=== PATIENT | female | born 1960 | race Caucasian/White ===

== ENCOUNTER → 2020-10-01 09:35 | Outpatient (CLI) | payer OTHER, SELFPAY ==
[2020-10-01 10:04] LABS: Absolute Neutrophil Count 5.6 X10^3/uL (2.0-7.7); Basophil# 0.04 X10^3/uL; Basophil% 0.6 % (0-1); Eosinophil# 0.09 X10^3/uL; Eosinophils% 1.3 % (0-5); Hematocrit 34.8 % (37-47); Hemoglobin 11.9 g/dL (12.0-15.0); Lymphocyte % 12.6 % (19-41); Mean Corp Hgb Conc 34.2 g/dL (32-36); Mean Corpuscular Hgb 35.4 pg (27.0-32.0); Mean Corpuscular Volume 103.6 fL (81-99); Monocyte# 0.46 X10^3/uL; Monocyte% 6.4 % (0-10); NRBC Flagged by Analyzer 0 % (0-5); Neutrophil # 5.61 X10^3/uL (2.7-7.7); Neutrophil % 78.5 % (47-70); Platelet Count 155 K/mm3 (150-450); RBC Distribution Width CV 12.6 % (11.6-14.6); RBC Distribution Width SD 47.5 fl (35.1-43.9); Red Blood Count 3.36 M/mm3 (4.2-5.4); White Blood Count 7.1 K/mm3 (4.4-11.0)
[2020-10-01 10:51] LABS: ALB/GLOB Ratio 0.9 RATIO (0.9-2.4); AST(SGOT) 83 U/L (15-37); Alanine Aminotransfer ALT/SGPT 63 U/L (13-56); Albumin, Serum 4.1 g/dL (3.2-5.0); Alkaline Phosphatase 81 U/L (45-117); Anion Gap 10 (5-15); BUN 7 mg/dL (7-18); BUN/Creat Ratio 7.5 RATIO (10-20); Calcium,Total 9.3 mg/dL (8.5-10.1); Chloride 95 mmol/L (98-107); Creatinine, Serum 0.93 mg/dL (0.55-1.02); EST Glomerular Filtration Rate 65 mL/min (>60); Est Glom Filt Rate - Afr Amer 79 mL/min (>60); Globulin 4.6 g/dL (2.2-4.2); Glucose 89 mg/dL (74-106); Potassium 3.4 mmol/L (3.5-5.1); Protein, Total 8.7 g/dL (6.4-8.2); Sodium Level 131 mmol/L (136-145); T4 Total, Thyroxin 8.1 ug/dL (4.8-13.9); Thyroid Stim Hormone (TSH) 4.86 uIU/mL (0.358-3.74)
== END ==
DX: R00.0 Tachycardia, unspecified (principal)
CPT/HCPCS: 36415; 80053; 84436; 84443; 85025

== ENCOUNTER → 2020-10-24 12:46 | Outpatient (CLI) | payer OTHER, SELFPAY ==
[2020-10-24 13:31] LABS: Vitamin B12 559 pg/mL (211-911)
[2020-10-24 14:06] LABS: Iron 217 ug/dL (50-170); Iron Binding Capacity,Total 280 ug/dL (250-450)
[2020-11-01 04:10] LABS: Vitamin B1, Thiamine 128.5 nmol/L (66.5-200.0)
[2020-11-01 12:28] LABS: Thyroid Peroxidase AB 22 IU/mL (0-34)
== END ==
DX: F32.89 Other specified depressive episodes (principal)
CPT/HCPCS: 36415; 82607; 82746; 83540; 83550; 84425; 86376

== ENCOUNTER → 2020-10-29 11:11 | Outpatient (CLI) | payer OTHER, SELFPAY ==
[2020-10-29 11:40] LABS: Absolute Lymphocyte Count 0.97 X10^3/uL (0.83-4.51); Absolute Neutrophil Count 7.2 X10^3/uL (2.0-7.7); Basophil# 0.03 X10^3/uL; Basophil% 0.3 % (0-1); Eosinophil# 0.02 X10^3/uL; Eosinophils% 0.2 % (0-5); Hematocrit 35.7 % (37-47); Hemoglobin 11.5 g/dL (12.0-15.0); Lymphocyte # 0.97 X10^3/ul (4.0); Lymphocyte % 10.8 % (19-41); Mean Corp Hgb Conc 32.2 g/dL (32-36); Mean Corpuscular Volume 105.6 fL (81-99); Mean Platelet Vol. 8.7 fl (6.2-12.0); Monocyte# 0.74 X10^3/uL; Monocyte% 8.2 % (0-10); NRBC Flagged by Analyzer 0 % (0-5); Neutrophil % 80.1 % (47-70); Platelet Count 148 K/mm3 (150-450); RBC Distribution Width CV 14.3 % (11.6-14.6); RBC Distribution Width SD 55.5 fl (35.1-43.9); Red Blood Count 3.38 M/mm3 (4.2-5.4)
[2020-10-29 12:15] LABS: ALB/GLOB Ratio 0.9 RATIO (0.9-2.4); AST(SGOT) 63 U/L (15-37); Alanine Aminotransfer ALT/SGPT 55 U/L (13-56); Albumin, Serum 4.1 g/dL (3.2-5.0); Alkaline Phosphatase 85 U/L (45-117); Anion Gap 11 (5-15); BUN 6 mg/dL (7-18); BUN/Creat Ratio 7.1 RATIO (10-20); Calcium,Total 9.8 mg/dL (8.5-10.1); Chloride 94 mmol/L (98-107); Creatinine, Serum 0.85 mg/dL (0.55-1.02); EST Glomerular Filtration Rate 73 mL/min (>60); Est Glom Filt Rate - Afr Amer 88 mL/min (>60); Globulin 4.6 g/dL (2.2-4.2); Glucose 122 mg/dL (74-106); Potassium 3.6 mmol/L (3.5-5.1); Protein, Total 8.7 g/dL (6.4-8.2); Sodium Level 133 mmol/L (136-145); Thyroid Stim Hormone (TSH) 8.91 uIU/mL (0.358-3.74)
[2020-10-30 11:23] LABS: H. Pylori Antibody (IgG) 0.45 (0.00-0.79)
== END ==
DX: R11.2 Nausea with vomiting, unspecified (principal)
CPT/HCPCS: 36415; 80053; 84443; 85025; 86677

== ENCOUNTER → 2020-11-22 13:44 | Outpatient (CLI) | payer OTHER, SELFPAY | PROVIDERS: Visit Provider Nurse Practitioner Adult Health | DX: K92.1 Melena (principal) | CPT/HCPCS: 82274 ==

== ENCOUNTER → 2020-11-28 10:02 | Outpatient (CLI) | payer OTHER, SELFPAY ==
[2020-11-28 10:24] LABS: Absolute Lymphocyte Count 2.28 X10^3/uL (0.83-4.51); Absolute Neutrophil Count 4.8 X10^3/uL (2.0-7.7); Basophil# 0.07 X10^3/uL; Basophil% 0.9 % (0-1); Eosinophil# 0.17 X10^3/uL; Eosinophils% 2.1 % (0-5); Hematocrit 35.9 % (37-47); Hemoglobin 11.9 g/dL (12.0-15.0); Lymphocyte # 2.28 X10^3/ul (0.83-4.51); Lymphocyte % 28.8 % (19-41); Mean Corp Hgb Conc 33.1 g/dL (32-36); Mean Corpuscular Hgb 35.6 pg (27.0-32.0); Mean Corpuscular Volume 107.5 fL (81-99); Mean Platelet Vol. 8.7 fl (6.2-12.0); Monocyte% 7.6 % (0-10); NRBC Flagged by Analyzer 0 % (0-5); Neutrophil # 4.76 X10^3/uL (2.7-7.7); Neutrophil % 60.2 % (47-70); Platelet Count 227 K/mm3 (150-450); RBC Distribution Width CV 13.2 % (11.6-14.6); Red Blood Count 3.34 M/mm3 (4.2-5.4); White Blood Count 7.9 K/mm3 (4.4-11.0)
--- NOTE | 2020-11-28 10:25 | RAD_ITS ---
STUDY: X-RAY - THORACIC SPINE REASON FOR EXAM: Female, 60 years old. PAIN IN THORACIC SPINE TECHNIQUE: 3 view(s) of the thoracic spine were obtained. COMPARISON: None. FINDINGS: Normal kyphosis of the thoracic spine. There is no substantial scoliosis. There is multilevel endplate spondylosis of the thoracic vertebrae. There is multilevel disc space narrowing of the thoracic spine. The soft tissue structures are unremarkable. RAD/Thoracic Spine 2 Views IMPRESSION: Degenerative changes without acute findings Electronically Signed: Zak Cortez DO at 23:26 EDT Tel , Service support ,
[2020-11-28 10:51] LABS: ALB/GLOB Ratio 0.9 RATIO (0.9-2.4); AST(SGOT) 66 U/L (15-37); Alanine Aminotransfer ALT/SGPT 69 U/L (13-56); Albumin, Serum 3.9 g/dL (3.2-5.0); Alkaline Phosphatase 74 U/L (45-117); Anion Gap 13 (5-15); BUN 5 mg/dL (7-18); BUN/Creat Ratio 6.7 RATIO (10-20); Calcium,Total 8.9 mg/dL (8.5-10.1); Chloride 102 mmol/L (98-107); Creatinine, Serum 0.74 mg/dL (0.55-1.02); EST Glomerular Filtration Rate 84 mL/min (>60); Est Glom Filt Rate - Afr Amer 102 mL/min (>60); Globulin 4.5 g/dL (2.2-4.2); Glucose 99 mg/dL (74-106); Potassium 4.2 mmol/L (3.5-5.1); Protein, Total 8.4 g/dL (6.4-8.2); Sodium Level 137 mmol/L (136-145); Thyroid Stim Hormone (TSH) 8.04 uIU/mL (0.358-3.74)
== END ==
PROVIDERS: PCP Nurse Practitioner Adult Health; Referring Provider Nurse Practitioner Adult Health; Visit Provider Nurse Practitioner Adult Health
DX: R11.2 Nausea with vomiting, unspecified (principal); M54.6 Pain in thoracic spine
CPT/HCPCS: 36415; 72070; 80053; 84443; 85025

== ENCOUNTER → 2020-12-04 08:51 | Outpatient (CLI) | payer OTHER, SELFPAY ==
--- NOTE | 2020-12-04 08:53 | US_ITS ---
STUDY: ABDOMINAL ULTRASOUND - RIGHT UPPER QUADRANT REASON FOR VISIT: Female, 60 years old nausea and vomiting TECHNIQUE: Ultrasound evaluation of the right upper quadrant was performed with real-time and static abernathy-scale imaging. TECHNICAL QUALITY: Adequate. COMPARISON: None. FINDINGS: Liver: The liver measures 14.6 cm. There is normal echogenicity of the liver. The bile ducts are within normal limits. There is hepatic color flow. The direction of portal flow is hepatopetal. There is no demonstrated mass lesion. Gallbladder: Normal distended gallbladder. The gallbladder wall measures 3 mm. There is a negative sonographic Gutierrez''s sign. There is no pericholecystic fluid. There are no gallstones. Common Bile Duct (C.B.D.): The common bile duct measures 5 mm. Pancreas: Normal size of the head, body and tail of the pancreas. There is normal echogenicity of the pancreas. There is no demonstrated pancreatic mass or cyst. Right Kidney: Normal size of the right kidney. The right kidney measures 9.5 x 5.1 x 4.0 cm. Normal renal cortex. The right cortex measures 1.3 cm. There is no demonstrated renal mass or cyst. There is no right hydronephrosis. US/Abdomen Limited IMPRESSION: Normal right upper quadrant ultrasound examination. Electronically Signed: Rowdy Romo MD at 10:15 EDT , Service support ,
== END ==
PROVIDERS: PCP Nurse Practitioner Adult Health; Referring Provider Nurse Practitioner Adult Health; Visit Provider Nurse Practitioner Adult Health
DX: R10.811 Right upper quadrant abdominal tenderness (principal); R11.2 Nausea with vomiting, unspecified
CPT/HCPCS: 76705

== ENCOUNTER → 2021-04-15 14:02 | Outpatient (CLI) | payer OTHER, SELFPAY ==
[2021-04-15 14:56] LABS: Hematocrit 26.5 % (37-47); Hemoglobin 8.4 g/dL (12.0-15.0); Mean Corp Hgb Conc 31.7 g/dL (32-36); Mean Corpuscular Hgb 34.9 pg (27.0-32.0); Mean Platelet Vol. 9.1 fl (6.2-12.0); Platelet Count 488 K/mm3 (150-450); RBC Distribution Width SD 56.8 fl (35.1-43.9); Red Blood Count 2.41 M/mm3 (4.2-5.4); White Blood Count 9.2 K/mm3 (4.4-11.0)
[2021-04-15 15:26] LABS: AST(SGOT) 12 U/L (15-37); Alanine Aminotransfer ALT/SGPT 14 U/L (13-56); Albumin, Serum 2.9 g/dL (3.2-5.0); Alkaline Phosphatase 66 U/L (45-117); Bilirubin, Direct 0.06 mg/dL (0.00-0.30); Globulin 5.4 g/dL (2.2-4.2); Protein, Total 8.3 g/dL (6.4-8.2); Thyroid Stim Hormone (TSH) 2.63 uIU/mL (0.358-3.74)
== END ==
PROVIDERS: Referring Provider Family Medicine; Visit Provider Family Medicine
DX: R94.5 Abnormal results of liver function studies (principal); E03.9 Hypothyroidism, unspecified; D75.89 Other specified diseases of blood and blood-forming organs
CPT/HCPCS: 36415; 80076; 82746; 84443; 85027

== ENCOUNTER → 2021-04-21 10:36 | Outpatient (CLI) | payer OTHER, SELFPAY ==
[2021-04-21 11:38] LABS: Absolute Lymphocyte Count 1.84 X10^3/uL (0.83-4.51); Absolute Neutrophil Count 8.6 X10^3/uL (2.0-7.7); Basophil# 0.07 X10^3/uL; Basophil% 0.6 % (0-1); Eosinophil# 0.41 X10^3/uL; Eosinophils% 3.5 % (0-5); Hematocrit 28.6 % (37-47); Hemoglobin 8.9 g/dL (12.0-15.0); Lymphocyte # 1.84 X10^3/ul (0.83-4.51); Lymphocyte % 15.7 % (19-41); Mean Corp Hgb Conc 31.1 g/dL (32-36); Mean Corpuscular Hgb 34.4 pg (27.0-32.0); Mean Corpuscular Volume 110.4 fL (81-99); Mean Platelet Vol. 9.4 fl (6.2-12.0); Monocyte# 0.76 X10^3/uL; Monocyte% 6.5 % (0-10); NRBC Flagged by Analyzer 0 % (0-5); Neutrophil # 8.57 X10^3/uL (2.7-7.7); Platelet Count 599 K/mm3 (150-450); RBC Distribution Width CV 13.4 % (11.6-14.6); RBC Distribution Width SD 54.4 fl (35.1-43.9); Red Blood Count 2.59 M/mm3 (4.2-5.4); White Blood Count 11.7 K/mm3 (4.4-11.0)
[2021-04-23 19:07] LABS: HCV Quant. RNA PCR HCV Not Detected IU/mL (.)
[2021-04-23 21:25] LABS: Hepatitis B Core Ab Total Negative (Negative)
== END ==
PROVIDERS: Referring Provider Nurse Practitioner Adult Health; Visit Provider Nurse Practitioner Adult Health
DX: D64.9 Anemia, unspecified (principal); R94.5 Abnormal results of liver function studies
CPT/HCPCS: 36415; 85025; 86704; 87522

== ENCOUNTER → 2021-05-09 11:18 | Outpatient (CLI) | payer OTHER, SELFPAY ==
[2021-05-09 12:19] LABS: Absolute Lymphocyte Count 1.72 X10^3/uL (0.83-4.51); Absolute Neutrophil Count 6.8 X10^3/uL (2.0-7.7); Basophil# 0.05 X10^3/uL; Basophil% 0.5 % (0-1); Eosinophil# 0.26 X10^3/uL; Eosinophils% 2.7 % (0-5); Hematocrit 27.9 % (37-47); Hemoglobin 9.1 g/dL (12.0-15.0); Lymphocyte # 1.72 X10^3/ul (0.83-4.51); Lymphocyte % 17.8 % (19-41); Mean Corp Hgb Conc 32.6 g/dL (32-36); Mean Corpuscular Hgb 34.2 pg (27.0-32.0); Mean Corpuscular Volume 104.9 fL (81-99); Mean Platelet Vol. 9.4 fl (6.2-12.0); Monocyte# 0.78 X10^3/uL; NRBC Flagged by Analyzer 0 % (0-5); Neutrophil # 6.79 X10^3/uL (2.7-7.7); Neutrophil % 70.1 % (47-70); Platelet Count 352 K/mm3 (150-450); RBC Distribution Width CV 12.4 % (11.6-14.6); Red Blood Count 2.66 M/mm3 (4.2-5.4); White Blood Count 9.7 K/mm3 (4.4-11.0)
[2021-05-09 12:53] LABS: ALB/GLOB Ratio 0.6 RATIO (0.9-2.4); AST(SGOT) 17 U/L (15-37); Alanine Aminotransfer ALT/SGPT 18 U/L (13-56); Albumin, Serum 3.3 g/dL (3.2-5.0); Alkaline Phosphatase 71 U/L (45-117); Anion Gap 11 (5-15); BUN 16 mg/dL (7-18); BUN/Creat Ratio 11.1 RATIO (10-20); Calcium,Total 9.5 mg/dL (8.5-10.1); Chloride 101 mmol/L (98-107); Creatinine, Serum 1.44 mg/dL (0.55-1.02); EST Glomerular Filtration Rate 39 mL/min (>60); Est Glom Filt Rate - Afr Amer 48 mL/min (>60); Globulin 5.6 g/dL (2.2-4.2); Glucose 106 mg/dL (74-106); Lipase 685 U/L (73-393); Potassium 3.7 mmol/L (3.5-5.1); Protein, Total 8.9 g/dL (6.4-8.2); Sodium Level 131 mmol/L (136-145)
== END ==
PROVIDERS: Referring Provider Surgery; Visit Provider Surgery
DX: D64.9 Anemia, unspecified (principal); R10.9 Unspecified abdominal pain; R11.10 Vomiting, unspecified; R63.4 Abnormal weight loss
CPT/HCPCS: 36415; 80053; 83690; 85025

== ENCOUNTER → 2021-05-20 09:32 | Outpatient (CLI) | payer OTHER, SELFPAY ==
[2021-05-20 09:59] LABS: ALB/GLOB Ratio 0.6 RATIO (0.9-2.4); AST(SGOT) 18 U/L (15-37); Alanine Aminotransfer ALT/SGPT 19 U/L (13-56); Albumin, Serum 3.5 g/dL (3.2-5.0); Alkaline Phosphatase 75 U/L (45-117); Anion Gap 14 (5-15); BUN 7 mg/dL (7-18); Calcium,Total 10.2 mg/dL (8.5-10.1); Chloride 100 mmol/L (98-107); Creatinine, Serum 1.73 mg/dL (0.55-1.02); EST Glomerular Filtration Rate 32 mL/min (>60); Est Glom Filt Rate - Afr Amer 39 mL/min (>60); Globulin 5.7 g/dL (2.2-4.2); Glucose 133 mg/dL (74-106); Lipase 572 U/L (73-393); Potassium 2.8 mmol/L (3.5-5.1); Protein, Total 9.2 g/dL (6.4-8.2); Sodium Level 129 mmol/L (136-145)
== END ==
PROVIDERS: Referring Provider Surgery; Visit Provider Surgery
DX: R10.9 Unspecified abdominal pain (principal); R11.10 Vomiting, unspecified; R63.4 Abnormal weight loss; D64.9 Anemia, unspecified
CPT/HCPCS: 36415; 80053; 83690

== ENCOUNTER 2021-05-20 10:27 | Inpatient (IN) | payer OTHER, SELFPAY ==
[2021-05-20 10:28] VITALS: BP 105/69; PULSE 92; RESP 16; TEMP 36.4; O2SAT 100
--- NOTE | 2021-05-20 10:47 | EDS_ITS ---
HPI HPI - GI History of Present Illness Chief Complaint: Abd Pain Informant: patient Abdominal Pain/Flank Pain Onset: Month(s) Context: Gradual Onset Timing: Intermittent Quality: Aching Location: RUQ Current Severity: Gone Maximum Severity: Mild Worsened by: Nothing Relieved by: Nothing Nausea/Vomiting/Emesis GI Symptom: Negative for Nausea and Vomiting Diarrhea/Melena/Hematochezia GI Symptom: Positive for Diarrhea Onset: Weeks Stool Quality: Positive for Loose Severity: Mild Associated Symptoms Associated Symptoms: Negative for Dysuria, Frequency, Hematuria and Urgency Narrative Narrative: 60-year-old female past medical history of hypertension and hypothyroidism. Denies any prior abdominal surgeries. Recently stopped drinking a week ago but before that drinks several beers a day. States that she just feels weak all over. They have been working up for months for right upper quadrant abdominal pain she had a negative ultrasound. Today she was in Dr. Marin's office. They sent her in the emergency department for further evaluation. She felt weak and like she might pass out there. She denies any melena or hematemesis. No fever. She has had a 10 pound weight loss over the last several months. Prior similar symptoms: Yes Recent Illness/Hospitalization: No PFSH PFSH Medical History Alcohol use Anemia Anxiety and depression Back pain Former smoker Gastric reflux History of TMJ disorder Hypertension Hypothyroidism Osteoarthritis Restless legs Shortness of breath on exertion Walker as ambulation aid Home Medications levothyroxine 50 mcg tablet 50 mcg PO DAILY tab 05/09/21 [History Last Taken 05/19/21] lisinopril 10 mg tablet 10 mg PO DAILY tab 05/09/21 [History Last Taken 05/19/21] omeprazole 20 mg capsule,delayed release 20 mg PO DAILY cap 05/09/21 [History Last Taken 05/19/21] sertraline 25 mg tablet 25 mg PO DAILY tab 05/09/21 [History Last Taken 05/19/21] Allergy/AdvReac Type Severity Reaction Status Date / Time Penicillins Allergy Mild Rash Verified 05/20/21 10:40 Family History Father Cancer Mother Cancer Surgical History History of mandibular surgery Social History Smoking Status: Former smoker ROS ROS ED ROS Narrative Abdominal pain. Diarrhea. Review of Systems ROS Unobtainable: Denies due to encephalopathy Constitutional Constitutional ED: Denies fever(s) ENT ENT ED: Denies ear pain Cardiovascular Cardiovascular: Denies chest pain Respiratory/Chest Respiratory/Chest: Denies cough or dyspnea Gastrointestinal Gastrointestinal: Reports abdominal pain and diarrhea; Denies nausea or vomiting Genitourinary Genitourinary ED: Denies dysuria Musculoskeletal Musculoskeletal: Denies myalgias Integumentary Denies rash Neurologic Neurologic: Denies headache(s) Psychiatric Psychiatric: Denies depression Endocrine Endocrinology: Denies polyuria Hematologic/Lymphatic Hematologic/Lymphatic: Denies easy bruising Allergic/Immunologic Allergic/Immunologic ED: Denies urticaria EXAM Physical Exam Narrative Exam Narrative: 60-year-old female no acute distress. Currently pain-free. HEENT exam unremarkable. Neck nontender. Lungs clear to auscultation. Heart regular rhythm no murmur. Abdomen soft. Nondistended normal bowel sounds no peritoneal signs. Right upper quadrant currently is nontender. She is moving all 4 extremities. Calves are nontender without edema. Back nontender. Neurologically she is awake and alert. Very benign exam. Const Vital Signs: 05/20/21 10:28 05/20/21 14:18 Temperature 97.6 F L Temperature Source Temporal Pulse Rate 92 78 Respiratory Rate 16 14 Blood Pressure 105/69 107/89 H Blood Pressure Mean 81 95 Pulse Ox 100 99 Oxygen Delivery Method Room Air Room Air Positive well nourished and well developed; Negative for obese, cachectic, contractures or unkempt General Appearance ED: well developed and NAD; Negative for unkempt, cachectic, contractures or pallor Nutritional Appearance: Negative for cachectic or obese HEENT Reports moist mucous membranes normocephalic and atraumatic Eyes PERRL and EOMs intact bilaterally Neck no lymphadenopathy, supple and no JVD General: Negative for tenderness Resp normal respiratory effort and clear to auscultation bilaterally Auscultation: Negative for rales, rhonchi, wheezes or diminished lung sounds Cardio regular rate, regular rhythm, S1 normal heart sound, S2 normal heart sound and no murmurs GI non-tender, non-distended and no masses Auscultation: normoactive bowel sounds Palpation: soft; Negative for tender, guarding or rigid Back/Spine no CVA tenderness General Back: Negative for CVA tenderness Extremity full ROM General Extremety ED: Negative for edema or tenderness General Extremity: Negative for edema Neuro CN's II-XII intact bilaterally and moves all extremities Sensorium / Orientation: alert, oriented to person, oriented to place, oriented to time and orientation impaired; Negative for confused, lethargic or stuporous Motor Exam: strength 5/5 throughout Psych mental status grossly normal and thought process normal Appearance: Negative for unkempt Skin no wounds General Skin Exam: Negative for jaundice or pallor Lesions: no lesions Rashes: no rashes MDM MDM MDM Narrative Medical decision making narrative: 60-year-old with chronic abdominal pain he been working up for months. Was sent from the surgeon's office today. She will the CAT scan labs. Repeat exam patient is doing well. Her abdomen is nontender at this time. I spoke to her surgeon and I will have the hospitalist admit her for IV hydration and reevaluation of her kidney function and then they can go from there. Lab Data Attestation: I reviewed the patient's lab results. Lab results narrative: CBC shows a white count 8.5. Hemoglobin 9.5 with an elevated MCV. Platelet count unremarkable. Lipase elevated at 548 but coming down. CAT scan was positive for multiple gallstones and a possible right hemicolon colitis. Electrolytes were done earlier today show hyponatremia and hypokalemia probably associated with her history of alcohol use. Her lipase is actually significantly improved from what was it was 2300 several days ago. This I suspect is resolving pancreatitis either from her alcohol use or her gallstones. She does have slightly worsening kidney function with a creatinine of 1.73. Labs: Laboratory Results - last 24 hr 05/20/21 05/20/21 11:17 11:17 WBC 8.5 RBC 2.78 L Hgb 9.5 L Hct 27.8 L MCV 100.0 H MCH 34.2 H MCHC 34.2 RDW Std Deviation 43.7 RDW Coeff of Dannie 11.9 Plt Count 298 MPV 9.5 Immature Gran % (Auto) 0.900 Neut % (Auto) 80.0 H Lymph % (Auto) 9.2 L [place] % (Auto) 8.0 Eos % (Auto) 1.5 Baso % (Auto) 0.4 Absolute Neuts (auto) 6.8 Absolute Lymphs (auto) 0.78 L Nucleated RBC % 0 Lipase 548 H Radiography Diagnostic Testing: Clinical Impression(s) from Imaging Studies Abdomen/Pelvis CT 05/20/21 11:42 IMPRESSION: Multiple small gallstones. Findings suggestive of colitis involving the right hemicolon. Free fluid in the pelvis. Follicles are seen in both ovaries. Electronically Signed: Onofre Glover MD at 12:29 EDT , Service support , Rhythm Strip Rhythm Strip: Sinus Rhythm Rate: 80 Ectopy: None EKG Initial EKG: Attestation: I personally reviewed and interpreted this EKG as follows: Interpretation: Sinus Rhythm and No Acute Injury Pattern Comments: Normal sinus rhythm rate of 80 no acute signs of CA or ischemia. Discharge Plan Dx/Rx/DC Orders Clinical Impression: Abdominal pain, Pre-syncope, Gallstones, Acute hyponatremia, Acute hypokalemia, History of alcohol abuse, Acute dehydration, Acute kidney injury Disposition Disposition: Acute Care Hospital [facility]
--- NOTE | 2021-05-20 11:15 | CM.ED ---
SW Note Referral Source: Case Find Referral Reason: No Primary Care Physician (PCP) SW reviewed chart and noted that patient has no PCP. SW provided patient with list of [facility] and [facility] Physician List for reference. SW also provided patient with handout ?Where to go When?. No other issues or concerns voiced at this time. SW remains available for any additional needs. Plan: Provided patient with PCP information Valentina WARE
[2021-05-20] MEDS: 0.9% Normal Saline 1,000 ML 1000 ML IV (11:26)
[2021-05-20 11:34] LABS: Absolute Lymphocyte Count 0.78 X10^3/uL (0.83-4.51); Absolute Neutrophil Count 6.8 X10^3/uL (2.0-7.7); Basophil# 0.03 X10^3/uL; Basophil% 0.4 % (0-1); Eosinophil# 0.13 X10^3/uL; Eosinophils% 1.5 % (0-5); Hematocrit 27.8 % (37-47); Hemoglobin 9.5 g/dL (12.0-15.0); Lymphocyte # 0.78 X10^3/ul (0.83-4.51); Lymphocyte % 9.2 % (19-41); Mean Corp Hgb Conc 34.2 g/dL (32-36); Mean Corpuscular Hgb 34.2 pg (27.0-32.0); Mean Platelet Vol. 9.5 fl (6.2-12.0); Monocyte# 0.68 X10^3/uL; NRBC Flagged by Analyzer 0 % (0-5); Platelet Count 298 K/mm3 (150-450); RBC Distribution Width CV 11.9 % (11.6-14.6); RBC Distribution Width SD 43.7 fl (35.1-43.9); Red Blood Count 2.78 M/mm3 (4.2-5.4); White Blood Count 8.5 K/mm3 (4.4-11.0)
--- NOTE | 2021-05-20 11:42 | CT_ITS ---
STUDY: CT ABDOMEN AND PELVIS WITH CONTRAST REASON FOR EXAM: Female, 60 years old. Abd pain. RUQ and weight loss RADIATION DOSAGE (If Supplied By Facility): CTDIvol = ( 14.43 ) mGy, DLP = ( 268.55 ) mGycm TECHNIQUE: Transaxial images were obtained from the dome of the diaphragm to the symphysis pubis without oral contrast. IV 100mL Isovue-300 was administered. Sagittal and coronal images were reconstructed. Individualized dose optimization techniques were used for this CT. COMPARISON: None. FINDINGS: The visualized lung bases are unremarkable. The visualized portions of the heart are within normal limits. Normal liver. There are multiple small gallstones. Normal spleen. Normal pancreas. Normal bilateral adrenal glands. Normal right kidney. Normal left kidney. Normal visualized stomach. Normal small intestine. Mucosal thickening of the right hemicolon suggestive of colitis. The appendix is visualized and appears normal. There is scattered atherosclerotic calcification of the abdominal aorta, without a demonstrated aneurysm. Normal inferior vena cava. Normal retroperitoneum. Normal urinary bladder. Follicles are seen in both ovaries. Small amount of free fluid in the pelvis. Normal abdominal wall. There are diffuse degenerative changes of the visualized lumbar spine. Loss of height of the superior endplate of the L4 vertebrae. CT/Abdomen/Pelvis W IV Cont ONLY IMPRESSION: Multiple small gallstones. Findings suggestive of colitis involving the right hemicolon. Free fluid in the pelvis. Follicles are seen in both ovaries. Electronically Signed: Onofre Glover MD at 12:29 EDT , Service support ,
[2021-05-20 11:43] LABS: Lipase 548 U/L (73-393)
[2021-05-20 14:18] VITALS: BP 107/89; PULSE 78; RESP 14; O2SAT 99
--- NOTE | 2021-05-20 15:20 | EKG12_ITS ---
Test Reason : LOW POTASSIUM Blood Pressure : / mmHG Vent. Rate : 080 BPM Atrial Rate : 080 BPM P-R Int : 150 ms QRS Dur : 080 ms QT Int : 366 ms P-R-T Axes : 044 001 044 degrees QTc Int : 422 ms Normal sinus rhythm Low voltage QRS (Limb Leads) Confirmed by VELASQUEZ HURLEY, DINORA ([id number]), assistant film editor VANDANA ROMERO ([id number]) on 05/22/2021 8:48:47 AM Referred By: CK Confirmed By:DINORA ENG MD
[2021-05-20] MEDS: Potassium Chloride 10mEq/100mL 10 MEQ/100 ML IV.SOLN. 100 MEQ IV BOLUS ×5 (16:07→22:29)
[2021-05-20] MEDS: Potassium Chloride Oral Tablet 20 MEQ 40 MEQ PO (16:07)
[2021-05-20 16:17] VITALS: BP 101/85; PULSE 79; RESP 14; TEMP 36.1; O2SAT 99
--- NOTE | 2021-05-20 16:18 | PCM.HP.STD ---
HPI - General General Date of Admission: 05/20/21 Date of Service: 05/20/21 Chief Complaint: Dizziness, near syncopal sensation, lightheaded, abdominal pain, diarrhea. HPI Narrative The patient is a 60 y/o F w/ PMHx: Chronic anemia, OA, HTN, HLD, Hypothyroidism, RLS, Former tobacco use, Anxiety and Depression, EtOH abuse noting she stopped drinking ~ 1.5 week prior to current presentation who presents to the [facility] ED on 05/20/21 with pain at her general surgeon office, Dr. Hendrix with reported near syncopal event with fatigue, malaise and ongoing abdominal discomfort specifically at the office secondary to ongoing right upper quadrant pain with history of cholelithiasis and prior history of pancreatitis prompting referral to the ED for evaluation. Patient reports she was recently attempting to have endoscopies and was undergoing a bowel prep with loose stools but this was recently stopped secondary to her worsening symptoms. She notes the discomfort is primarily in the right upper quadrant, rated 6 out of 10 currently upon evaluation but sometimes it is worse with 10 out of 10, sharp. She reports approximately a 10 to 15 pound weight last over the last several 3 to 6 months but is not the best historian. She states that she quit drinking alcohol approximately 1.5 weeks prior to current presentation and notes that before that she was only drinking 1-2 beers, occasionally tall boys but from records this was much heavier previously. Work-up in the ED included T 97, heart rate 127 initially with repeat 79, BP 115/80, respiratory rate 20, 100% on room air, CBC with WBC 8.5, hemoglobin 9.5, platelet 298 with lymphopenia, lipase 548, CMP with sodium 129, potassium 2.8, BUN/creatinine 7/1.73, glucose 133, CT abdomen and pelvis with multiple small gallstones, findings suggestive of colitis involving the right hemicolon with mild free fluid in the pelvis with follicles seen in both ovaries. [facility] Medical History (Updated 05/20/21 @ 21:[address] Marnie Gorman MD) Alcohol use Anemia Anxiety and depression Back pain Former smoker Gastric reflux History of TMJ disorder Hypertension Hypothyroidism Osteoarthritis Restless legs Shortness of breath on exertion Walker as ambulation aid Home Medications levothyroxine 50 mcg tablet 50 mcg PO DAILY tab 05/09/21 [History Last Taken 05/19/21] lisinopril 10 mg tablet 10 mg PO DAILY tab 05/09/21 [History Last Taken 05/19/21] omeprazole 20 mg capsule,delayed release 20 mg PO DAILY cap 05/09/21 [History Last Taken 05/19/21] sertraline 25 mg tablet 25 mg PO DAILY tab 05/09/21 [History Last Taken 05/19/21] Allergy/AdvReac Type Severity Reaction Status Date / Time Penicillins Allergy Mild Rash Verified 05/20/21 10:40 Family History Father Cancer Mother Cancer Surgical History (Updated 05/20/21 @ 21:[address] Marnie Gorman MD) History of mandibular surgery Social History (Updated 05/20/21 @ 21:[address] Marnie Gorman MD) household members: none Smoking Status: Former smoker how long ago did patient quit smoking: Quit 30 years prior, 1 ppd since teenager until quitting. alcohol intake: former details: Quit 1 week prior to current admission 05/20/21, notes 1-2 tall boys daily. substance use type: does not use ROS ROS Narrative Admission Review of Systems: CONSTITUTIONAL: No weight loss, fever, chills, + weakness or fatigue. HEENT: Eyes: No visual loss, blurred vision, double vision or yellow sclerae. Ears, Nose, Throat: No hearing loss, sneezing, congestion, runny nose or sore throat. SKIN: No rash or itching, lesions, wounds. CARDIOVASCULAR: + Near syncopal sensation/LH/Dizziness. No chest pain, chest pressure or chest discomfort, palpitations, edema, orthopnea. RESPIRATORY: No shortness of breath, cough or sputum, wheezing, hemoptysis. GASTROINTESTINAL:+ anorexia, nausea, vomiting, diarrhea, abdominal pain, No melena, BRBPR. GENITOURINARY: No dysuria, frequency, urgency or retention. NEUROLOGICAL: + LH/Dizziness/near syncopal sensatoin. No headache, paralysis, ataxia, numbness or tingling in the extremities, focal weakness, change in bowel or bladder control, seizure. MUSCULOSKELETAL: + muscle, back pain, joint pain or stiffness. HEMATOLOGIC: + anemia, bleeding or bruising. LYMPHATICS: No enlarged nodes. No history of splenectomy. PSYCHIATRIC: + history of depression or anxiety. ENDOCRINOLOGIC: No reports of sweating, cold or heat intolerance. No polyuria or polydipsia. ALLERGIES: No history of asthma, hives, eczema or rhinitis. Vital Signs Vital Signs Vital Signs: 05/20/21 10:28 05/20/21 14:18 Temperature 97.6 F L Temperature Source Temporal Pulse Rate 92 78 Respiratory Rate 16 14 Blood Pressure 105/69 107/89 H Blood Pressure Mean 81 95 Pulse Ox 100 99 Oxygen Delivery Method Room Air Room Air Weight Weight: 120 lb Body Mass Index (BMI) 20.0 Physical Exam Narrative Physical Examination: General: Awake, alert, oriented x 3 and cooperative, seated upright in the ED bed, fatigued, flat affect. Skin: Normal color, normal turgor, no icterus, no cyanosis. HEENT: AT/NC, EOMI, PERRLA, dry MM, no carotid bruits or JVD noted. Lungs: Diminished, greater bases, moderate effort, no rales, ronchi or wheezing. Heart: Tachycardic with regular rhythm; no gallop, rub audible. Abdomen: Soft, generalized discomfort with palpation, worse right upper quadrant, with distraction seem to improve, some guarding but no rebound when distracted, mildly distended, mildly hyperactive bowel sounds, difficult discern HSM secondary to discomfort. Extremities: No cyanosis, clubbing, or edema. Neurological: Patient awake, alert, oriented as noted, cognitive function intact; pupils equally reactive to light and accommodation, cranial nerves II-XII grossly normal, moving all 4 extremities, no focal deficits, strength moderately global decreased. Psychiatric: Affect appears fatigued, flat, no acute evidence of depressive or anxiety feelings. Results Lab / Micro Data Result Diagrams: 05/20/21 11:17 Labs: Laboratory Results - last 24 hr 05/20/21 11:17: WBC 8.5, RBC 2.78 L, Hgb 9.5 L, Hct 27.8 L, MCV 100.0 H, MCH 34.2 H, MCHC 34.2, RDW Std Deviation 43.7, RDW Coeff of Dannie 11.9, Plt Count 298, MPV 9.5, Immature Gran % (Auto) 0.900, Neut % (Auto) 80.0 H, Lymph % (Auto) 9.2 L, [place] % (Auto) 8.0, Eos % (Auto) 1.5, Baso % (Auto) 0.4, Absolute Neuts (auto) 6.8, Absolute Lymphs (auto) 0.78 L, Nucleated RBC % 0 05/20/21 11:17: Lipase 548 H Rhythm Strip Rhythm Strip: Sinus Rhythm Rate: 80 Ectopy: None Radiology Impression Abdomen/Pelvis CT 05/20/21 11:42 IMPRESSION: Multiple small gallstones. Findings suggestive of colitis involving the right hemicolon. Free fluid in the pelvis. Follicles are seen in both ovaries. Electronically Signed: Onofre Glover MD at 12:29 EDT , Service support , Assessment & Plan Assessment/Plan (1) Acute kidney injury: (2) Acute colitis: PLAN: The patient is a 60 y/o F w/ PMHx: Chronic anemia, OA, HTN, HLD, Hypothyroidism, RLS, Former tobacco use, Anxiety and Depression, EtOH abuse noting she stopped drinking ~ 1.5 week prior to current presentation who presents to the [facility] ED on 05/20/21 with pain at her general surgeon office, Dr. Hendrix with reported near syncopal event with fatigue, malaise and ongoing abdominal discomfort specifically at the office secondary to ongoing right upper quadrant pain with history of cholelithiasis and prior history of pancreatitis prompting referral to the ED for evaluation. 1. Acute colitis, low suspicion for infectious etiology with associated BOLA, GI losses with Near Syncopal sensation: We will admit to medical surgical floor given electrolyte disturbances and acute kidney injury, will continue aggressive hydration, will obtain c diff, stool cx if recurrent loose stools, will allow clears only and will advance diet as tolerated once pain improving, will not start antibiotics at this time given unclear source pending stool studies as may be viral gastroenteritis. Procalcitonin requested. Anti-emetics, pain regimen PRN. 2. Recent Acute pancreatitis, resolving: Recent evaluation with 05/16/21 lipase 2316 with hydration and treatment outpatient with repeat now 548, will maintain on IVFs, currently allowing clears only given ongoing symptoms as noted, maintain on PPI, IV/po pain control, trend lipase, CMP. Given history and evidence of cholelithiasis from discussion with patient future plan likely cholecystectomy once current acute presentation resolves. 3. Acute kidney injury: Secondary to poor oral intake, GI losses as noted. Admission BUN/Cr 7/1.73, prior baseline creatinine noted to be 0.7 and 0.9. Will hydrate, hold nephrotoxic medications and repeat chemistry in AM. If no improvement would plan FeNa and renal ultrasound assessment. 4. Hypokalemia: Admission K+ 2.8, magnesium level requested, supplementation given per ED physician and will give additional, repeat level in AM. 5. EtOH Abuse: Patient notes routine consumption of currently only 1-2 potentially tall boys daily, quitting 1 week prior however patient is not the best story and there to be cautious, will maintain on CIWA protocol, MVI, thiamine and folic acid. Magnesium and phosphorus levels requested. Case management consulted. 6. Chronic anemia: Admission hemoglobin 9.5, baseline appears 9-11, likely associated with alcohol abuse history, will trend CBC. Continue supplements as noted above. 7. Anxiety depression: We will continue patient home sertraline regimen. 8. Hypertension: We will hold patient lisinopril given BOLA, resume once appropriate, as needed IV hydralazine 9. Hypothyroidism: Continue home synthroid regimen. 10. Chronic hyponatremia: Admission sodium 129, chronic, likely secondary to underlying alcohol abuse with beer potomania. 11. GERD: We will continue PPI. 12. DVT prophylaxis: SCDs, renally dose Lovenox. Charges/Coding Visit Charges Inpatient E&M: 96606 Init Hosp L3
[2021-05-20 16:46] LABS: Magnesium 2.1 mg/dL (1.6-2.6); Phosphorus 4.3 mg/dL (2.5-4.9)
[2021-05-20 17:49] VITALS: BMI 19.3
[2021-05-20 18:00] VITALS: BP 115/69; PULSE 77; RESP 16; TEMP 37.2; O2SAT 100
[2021-05-20] MEDS: 0.9% Normal Saline 1,000 ML 125 ML IV (18:31)
[2021-05-20] MEDS: Thiamine Hydrochloride 100 MG Tablet PO (18:33)
[2021-05-20 18:37] LABS: Procalcitonin 0.21 ng/mL (0.00-0.09)
[2021-05-20 19:50] VITALS: O2SAT 100
[2021-05-20 20:20] VITALS: BP 137/65; PULSE 85; RESP 16; TEMP 37.2; O2SAT 98
[2021-05-21 02:00] VITALS: BP 117/60; PULSE 81; RESP 16; TEMP 36.8; O2SAT 100
[2021-05-21] MEDS: 0.9% Normal Saline 1,000 ML 125 ML IV (02:03)
[2021-05-21] MEDS: Levothyroxine 50 MCG Tablet PO (05:18)
[2021-05-21 06:52] LABS: Absolute Lymphocyte Count 1.13 X10^3/uL (0.83-4.51); Absolute Neutrophil Count 4.1 X10^3/uL (2.0-7.7); Basophil# 0.04 X10^3/uL; Basophil% 0.6 % (0-1); Eosinophil# 0.22 X10^3/uL; Eosinophils% 3.6 % (0-5); Hemoglobin 7.8 g/dL (12.0-15.0); Lymphocyte # 1.13 X10^3/ul (0.83-4.51); Lymphocyte % 18.3 % (19-41); Mean Corp Hgb Conc 32.5 g/dL (32-36); Mean Corpuscular Hgb 33.8 pg (27.0-32.0); Mean Corpuscular Volume 103.9 fL (81-99); Mean Platelet Vol. 9.4 fl (6.2-12.0); Monocyte# 0.67 X10^3/uL; Monocyte% 10.9 % (0-10); NRBC Flagged by Analyzer 0 % (0-5); Neutrophil # 4.05 X10^3/uL (2.7-7.7); Neutrophil % 65.8 % (47-70); Platelet Count 260 K/mm3 (150-450); RBC Distribution Width CV 12.3 % (11.6-14.6); RBC Distribution Width SD 46.5 fl (35.1-43.9); Red Blood Count 2.31 M/mm3 (4.2-5.4); White Blood Count 6.2 K/mm3 (4.4-11.0)
[2021-05-21 07:21] LABS: ALB/GLOB Ratio 0.6 RATIO (0.9-2.4); AST(SGOT) 13 U/L (15-37); Alanine Aminotransfer ALT/SGPT 13 U/L (13-56); Albumin, Serum 2.5 g/dL (3.2-5.0); Alkaline Phosphatase 52 U/L (45-117); Anion Gap 10 (5-15); BUN 5 mg/dL (7-18); Calcium,Total 8.6 mg/dL (8.5-10.1); Chloride 110 mmol/L (98-107); Creatinine, Serum 1.26 mg/dL (0.55-1.02); EST Glomerular Filtration Rate 46 mL/min (>60); Est Glom Filt Rate - Afr Amer 56 mL/min (>60); Estimated Creatinine Clearance 40.32 ml/min; Globulin 4.4 g/dL (2.2-4.2); Glucose 80 mg/dL (74-106); Lipase 447 U/L (73-393); Potassium 3.6 mmol/L (3.5-5.1); Protein, Total 6.9 g/dL (6.4-8.2); Sodium Level 135 mmol/L (136-145)
--- NOTE | 2021-05-21 07:48 | PN.HOSP_ITS ---
Objective Data Objective Data Vital Signs: Vital Signs Temp Pulse Resp BP Pulse Ox 98.2 F 81 16 117/60 100 05/21/21 02:00 05/21/21 02:00 05/21/21 02:00 05/21/21 02:00 05/21/21 02:00 Oxygen Delivery Method Room Air Weight: 118 lb 9.6 oz Body Mass Index (BMI) 19.3 Intake & Output: Intake and Output for Last 24 Hours 05/19/21 05/20/21 05/21/21 23:59 23:59 23:59 Intake Total 1740 / 1740 941.67 / 941.67 Balance 1740 / 1740 941.67 / 941.67 Lab / Micro Data Result Diagrams: 05/21/21 05:58 05/21/21 05:58 Labs: Laboratory Results - last 24 hr 05/20/21 11:17: WBC 8.5, RBC 2.78 L, Hgb 9.5 L, Hct 27.8 L, MCV 100.0 H, MCH 34.2 H, MCHC 34.2, RDW Std Deviation 43.7, RDW Coeff of Dannie 11.9, Plt Count 298, MPV 9.5, Immature Gran % (Auto) 0.900, Neut % (Auto) 80.0 H, Lymph % (Auto) 9.2 L, [place] % (Auto) 8.0, Eos % (Auto) 1.5, Baso % (Auto) 0.4, Absolute Neuts (auto) 6.8, Absolute Lymphs (auto) 0.78 L, Nucleated RBC % 0 05/20/21 11:17: Lipase 548 H 05/20/21 11:17: Phosphorus 4.3, Magnesium 2.1 05/20/21 17:10: Ethyl Alcohol 4.0 05/20/21 17:10: Procalcitonin 0.21 H 05/21/21 05:58: WBC 6.2, RBC 2.31 L, Hgb 7.8 L, Hct 24.0 L, MCV 103.9 H, MCH 33.8 H, MCHC 32.5, RDW Std Deviation 46.5 H, RDW Coeff of Dannie 12.3, Plt Count 260, MPV 9.4, Immature Gran % (Auto) 0.800, Neut % (Auto) 65.8, Lymph % (Auto) 18.3 L, [place] % (Auto) 10.9 H, Eos % (Auto) 3.6, Baso % (Auto) 0.6, Absolute Neuts (auto) 4.1, Absolute Lymphs (auto) 1.13, Nucleated RBC % 0 05/21/21 05:58: Sodium 135 L, Potassium 3.6, Chloride 110 H, Carbon Dioxide 15.0 L, Anion Gap 10, BUN 5 L, Creatinine 1.26 H, Estim Creat Clear Calc 40.32, Est GFR (MDRD) Af Amer 56 L, Est GFR (MDRD) Non-Af 46 L, BUN/Creatinine Ratio 4.0 L, Glucose 80, Calcium 8.6, Total Bilirubin 0.20, AST 13 L, ALT 13, Alkaline Phosphatase 52, Total Protein 6.9, Albumin 2.5 L, Globulin 4.4 H, Albumin/Globulin Ratio 0.6 L, Lipase 447 H Micro: Microbiology 05/21/21 00:59 Stool C. difficile DNA Amplification - Final Radiography Diagnostic Testing: Radiology Impression Abdomen/Pelvis CT 05/20/21 11:42 IMPRESSION: Multiple small gallstones. Findings suggestive of colitis involving the right hemicolon. Free fluid in the pelvis. Follicles are seen in both ovaries. Electronically Signed: Onofre Glover MD at 12:29 EDT , Service support , Rhythm Strip Rhythm Strip: Sinus Rhythm Rate: 80 Ectopy: None Assessment & Plan Assessment/Plan (1) Acute kidney injury: (2) Acute colitis: PLAN: The patient is a 60 y/o F w/ PMHx: Chronic anemia, OA, HTN, HLD, Hypothyroidism, RLS, Former tobacco use, Anxiety and Depression, EtOH abuse noting she stopped drinking ~ 1.5 week prior to current presentation who presents to the [facility] ED on 05/20/21 with pain at her general surgeon office, Dr. Hendrix with reported near syncopal event with fatigue, malaise and ongoing abdominal discomfort specifically at the office secondary to ongoing right upper quadrant pain with history of cholelithiasis and prior history of pancreatitis prompting referral to the ED for evaluation. 1. Acute colitis, low suspicion for infectious etiology with associated BOLA, GI losses with Near Syncopal sensation: We will admit to medical surgical floor given electrolyte disturbances and acute kidney injury, will continue aggressive hydration, will obtain c diff, stool cx if recurrent loose stools, will allow c lears only and will advance diet as tolerated once pain improving, will not start antibiotics at this time given unclear source pending stool studies as may be viral gastroenteritis. Procalcitonin requested. Anti-emetics, pain regimen PRN. 2. Recent Acute pancreatitis, resolving: Recent evaluation with 05/16/21 lipase 2316 with hydration and treatment outpatient with repeat now 548, will maintain on IVFs, currently allowing clears only given ongoing symptoms as noted, maintain on PPI, IV/po pain control, trend lipase, CMP. Given history and evidence of cholelithiasis from discussion with patient future plan likely cholecystectomy once current acute presentation resolves. 3. Acute kidney injury: Secondary to poor oral intake, GI losses as noted. Admission BUN/Cr 7/1.73, prior baseline creatinine noted to be 0.7 and 0.9. Will hydrate, hold nephrotoxic medications and repeat chemistry in AM. If no improvement would plan FeNa and renal ultrasound assessment. 4. Hypokalemia: Admission K+ 2.8, magnesium level requested, supplementation given per ED physician and will give additional, repeat level in AM. 5. EtOH Abuse: Patient notes routine consumption of currently only 1-2 pot entially tall boys daily, quitting 1 week prior however patient is not the best story and there to be cautious, will maintain on CIWA protocol, MVI, thiamine and folic acid. Magnesium and phosphorus levels requested. Case management consulted. 6. Chronic anemia: Admission hemoglobin 9.5, baseline appears 9-11, likely associated with alcohol abuse history, will trend CBC. Continue supplements as noted above. 7. Anxiety depression: We will continue patient home sertraline regimen. 8. Hypertension: We will hold patient lisinopril given BOLA, resume once appropriate, as needed IV hydralazine 9. Hypothyroidism: Continue home synthroid regimen. 10. Chronic hyponatremia: Admission sodium 129, chronic, likely secondary to underlying alcohol abuse with beer potomania. 11. GERD: We will continue PPI. 12. DVT prophylaxis: SCDs, renally dose Lovenox.
[2021-05-21 10:00] VITALS: BP 111/67; PULSE 87; RESP 16; TEMP 37.3; O2SAT 100
[2021-05-21] MEDS: Lactated Ringers 1,000 ML 150 ML IV (10:00)
[2021-05-21] MEDS: Pantoprazole Sodium 40 MG Tablet PO (10:03)
[2021-05-21] MEDS: Multivitamins,Ther W-Minerals Tablet 1 TABLET PO (10:04)
[2021-05-21] MEDS: Folic Acid 1 MG Tablet PO (10:04)
[2021-05-21] MEDS: Sertraline 50 MG Tablet 25 MG PO (10:04)
[2021-05-21] MEDS: Thiamine Hydrochloride 100 MG Tablet PO (10:04)
--- NOTE | 2021-05-21 10:25 | DS.PCM_ITS ---
Providers Date of Admission: 05/20/21 Primary Care Physician: No Primary Care Phys Reason For Visit: HPONATREMIA, HYPOKALEMIA, [place], ALCOHOL ABOUSE, Diagnosis Discharge Diagnosis (1) Acute kidney injury: Status: Acute Code(s): N17.9 - Acute kidney failure, unspecified (2) Acute colitis: Status: Acute Code(s): K52.9 - Noninfective gastroenteritis and colitis, unspecified Medications at Discharge Home Medications levothyroxine 50 mcg tablet 50 mcg PO DAILY tab 05/09/21 sertraline 25 mg tablet 25 mg PO DAILY tab 05/09/21 ferrous sulfate 325 mg PO QODAY #30 tab 05/21/21 folic acid 1 mg PO BREAKFAST #30 tab 05/21/21 omeprazole 40 mg PO DAILY #0 cap 05/21/21 thiamine HCl (vitamin B1) [Vitamin B-1] 100 mg PO DAILY #30 tab 05/21/21 Hospital Course Summary of Care Provided Hospital Course: The patient is 60-year-old female with multiple comorbidities was admitted with diarrhea after she had bowel prep for colonoscopy. Patient fe lt dizzy and lightheaded. Patient denies any GI bleed, hematemesis hematochezia or melena. Patient follows Dr Hendrix. Patient was admitted MedSurg floor. Patient also has history of chronic alcohol use and recently quit about 2 weeks ago. She has poor social support and sometimes her neighbor helps. Hemoglobin is stable at 7.8. Macrocytic anemia. Lipase elevated. I called Dr. Hendrix. She recently had and is recovering alcoholic pancreatitis as told by Dr. Hendrix. I also talked to case fitter and advised referred to outpatient 180 for treatment for alcohol dependence and prevent relapse. Patient given prescription for folic acid, thiamine and ferrous sulfate. BOLA mainly prerenal secondary to dehydration is much better. Her previous creatinine was 1.44 and currently 1.26. Seems her baseline is 0.74. Stool for C. difficile and enteric bacteriology panel are negative. Her other associated problems hypokalemia. Potassium replaced. Serum magnesium and phosphorus level normal. Her other comorbidities include anxiety and depression, hypertension, hypothyroidism and chronic hyponatremia and GERD. Discharge medication reconciliation done. Discharge follow-up instructions com pleted. Discharge process discussed with the patient and all questions were answered to patient's satisfaction. Total time spent, exact 35 minutes on discharge meds reconciliation, examination, discussion with Dr. Hendrix, coordination of care with nurses and ancillary staff, review of imaging and blood test and discussion with the patient on follow-up instructions Physical Exam Narrative General: Alert, Oriented x3, Cooperative HEENT: pale conjunctiva, Atraumatic, PERRLA, EOMI, Normocephalic Oral: oral mucosa moist. No Gingival or Mucosal Lesions/ Ulcerations Neck: Supple, No JVD, Negative Carotid Bruits Lungs: Air entry in bilateral lung bases. No crepitation/rhonchi Cardiovascular: Regular rate, Regular Rhythm, Normal S1, Normal S2, No murmurs Abdomen: Bowel Sounds Present, Soft, Non Tender, Non-Distended : No renal angle tenderness. No suprapubic tenderness. Extremities: No edema, Capillary Refill Less than 3 Seconds Skin: No rashes, No breakdown Musculoskeletal: No Tenderness to Palpation of Joints or Extremities Neurological: Cranial nerves II-XII grossly intact, DTR 2+/4 and Symmetrical, Neuro grossly intact Psych/Mental Status: flat affect Weight / BMI Weight Weight: 118 lb 9.6 oz Body Mass Index (BMI) 19.3 ABG / Lab / Microbiology Data Result Diagrams: 05/21/21 05:58 05/21/21 05:58 Laboratory: Laboratory Results - last 24 hr 05/20/21 11:17: WBC 8.5, RBC 2.78 L, Hgb 9.5 L, Hct 27.8 L, MCV 100.0 H, MCH 34.2 H, MCHC 34.2, RDW Std Deviation 43.7, RDW Coeff of Dannie 11.9, Plt Count 298, MPV 9.5, Immature Gran % (Auto) 0.900, Neut % (Auto) 80.0 H, Lymph % (Auto) 9.2 L, [place] % (Auto) 8.0, Eos % (Auto) 1.5, Baso % (Auto) 0.4, Absolute Neuts (auto) 6.8, Absolute Lymphs (auto) 0.78 L, Nucleated RBC % 0 05/20/21 11:17: Lipase 548 H 05/20/21 11:17: Phosphorus 4.3, Magnesium 2.1 05/20/21 17:10: Ethyl Alcohol 4.0 05/20/21 17:10: Procalcitonin 0.21 H 05/21/21 05:58: WBC 6.2, RBC 2.31 L, Hgb 7.8 L, Hct 24.0 L, MCV 103.9 H, MCH 33.8 H, MCHC 32.5, RDW Std Deviation 46.5 H, RDW Coeff of Dannie 12.3, Plt Count 260, MPV 9.4, Immature Gran % (Auto) 0.800, Neut % (Auto) 65.8, Lymph % (Auto) 18.3 L, [place] % (Auto) 10.9 H, Eos % (Auto) 3.6, Baso % (Auto) 0.6, Absolute Joana ts (auto) 4.1, Absolute Lymphs (auto) 1.13, Nucleated RBC % 0 05/21/21 05:58: Sodium 135 L, Potassium 3.6, Chloride 110 H, Carbon Dioxide 15.0 L, Anion Gap 10, BUN 5 L, Creatinine 1.26 H, Estim Creat Clear Calc 40.32, Est GFR (MDRD) Af Amer 56 L, Est GFR (MDRD) Non-Af 46 L, BUN/Creatinine Ratio 4.0 L, Glucose 80, Calcium 8.6, Total Bilirubin 0.20, AST 13 L, ALT 13, Alkaline Phosphatase 52, Total Protein 6.9, Albumin 2.5 L, Globulin 4.4 H, Albumin/Globulin Ratio 0.6 L, Lipase 447 H Microbiology: Microbiology 05/21/21 00:59 Stool Enteric Bacteriology - Final 05/21/21 00:59 Stool C. difficile DNA Amplification - Final Radiography Diagnostic Testing: Radiology Impression Abdomen/Pelvis CT 05/20/21 11:42 IMPRESSION: Multiple small gallstones. Findings suggestive of colitis involving the right hemicolon. Free fluid in the pelvis. Follicles are seen in both ovaries. Electronically Signed: Onofre Glover MD at 12:29 EDT , Service support , Meaningful Use Info Meaningful Use Diagnoses (Choose all that apply): None applicable Discharge Plan Admission Admit Date/Time: 05/20/21 15:54 Primary Reason for Your Visit: Acute kidney injury from dehydration/hypovolemia Attending Provider: Simon Macdonald Primary Care Provider: Care Physician,No Primary Instructions Additional Instructions / Restrictions: Advised to follow-up with PCP in 1 week and Advised BMP in 1 week with PCP and if it is normal can take lisinopril low-dose 2.5 to 5 mg daily if blood pressure high. Follow with 180 as an outpatient for alcohol rehab as an outpatient Discharge Orders/Prescriptions Prescriptions: New thiamine HCl (vitamin B1) [Vitamin B-1] 100 mg Tablet 100 mg PO DAILY Qty: 30 RF: 2 folic acid 1 mg Tablet 1 mg PO BREAKFAST Qty: 30 RF: 2 ferrous sulfate 325 mg (65 mg iron) tablet 325 mg PO QODAY Qty: 30 RF: 1 Continued levothyroxine 50 mcg tablet 50 mcg PO DAILY RF: 0 sertraline 25 mg tablet 25 mg PO DAILY RF: 0 Changed omeprazole 20 mg capsule,delayed release(DR/EC) 40 mg PO DAILY Qty: 0 RF: 0 Discontinued lisinopril 10 mg tablet 10 mg PO DAILY RF: 0 Referrals / Follow Up: Slime Christensen MD [STAFF PHYSICIAN] - Within 1 Week (for BOLA) Cirilo Hendrix MD [STAFF PHYSICIAN] - Within 2 Weeks (FOR Colonoscopy) Care Physician,No Primary [Primary Care Provider] - Within 1 Week Disposition Disposition (needs filled in before D/C Order can be placed): Home, Self Care Charges/Coding Visit Charges Inpatient E&M: 07534 Disch Hosp
--- NOTE | 2021-05-21 10:25 | PCM.DC ---
Discharge Instructions Diet Discharge Diet: No restrictions Activity Discharge Activity: Return to Normal Activity Weight Bearing Status: Weight bearing as tolerated Dressing / Incision Call your doctor if you observe: Fever of 101 or Higher, Coldness, Increased Pain, Numbness or Tingling, Change in Color, Inability to urinate, Inability to have a bowel movement, Using more than 1 pad per hour, Shortness of breath, Fainting spells, Swelling in the ankles, Chest pain, Prolonged hiccupping, Increased palpitations (irregular heartbeat), Calf discomfort and Uncontrolled pain Follow Up Care Test Results: Test results from this visit will be discussed in further detail at your follow-up appointment, if applicable. Discharge Plan Admission Admit Date/Time: 05/20/21 15:54 Primary Reason for Your Visit: Acute kidney injury from dehydration/hypovolemia Attending Provider: Simon Macdonald Primary Care Provider: Care Physician,Luz Primary Instructions Additional Instructions / Restrictions: Advised to follow-up with PCP in 1 week and Advised BMP in 1 week with PCP and if it is normal can take lisinopril low-dose 2.5 to 5 mg daily if blood pressure high. Follow with 180 as an outpatient for alcohol rehab as an outpatient Discharge Orders/Prescriptions Prescriptions: New thiamine HCl (vitamin B1) [Vitamin B-1] 100 mg Tablet 100 mg PO DAILY Qty: 30 RF: 2 folic acid 1 mg Tablet 1 mg PO BREAKFAST Qty: 30 RF: 2 ferrous sulfate 325 mg (65 mg iron) tablet 325 mg PO QODAY Qty: 30 RF: 1 Continued levothyroxine 50 mcg tablet 50 mcg PO DAILY RF: 0 sertraline 25 mg tablet 25 mg PO DAILY RF: 0 Changed omeprazole 20 mg capsule,delayed release(DR/EC) 40 mg PO DAILY Qty: 0 RF: 0 Discontinued lisinopril 10 mg tablet 10 mg PO DAILY RF: 0 Referrals / Follow Up: Care Physician,No Primary [Primary Care Provider] - Within 1 Week Slime Christensen MD [STAFF PHYSICIAN] - Within 1 Week (for BOLA) Cirilo Hendrix MD [STAFF PHYSICIAN] - Within 2 Weeks (FOR Colonoscopy) Disposition Disposition (needs filled in before D/C Order can be placed): Home, Self Care
--- NOTE | 2021-05-21 11:48 | CASEMGMT ---
Addendum entered by Emeli Vázquez 05/21/21 11:53: SW did inform pt that there is an addiction therapist that can speak with her while she is at [facility] and pt denied. Pt states she will just follow up as an outpatient. Original Note: Social Work Note SW updated that pt has ETOH abuse, quit drinking about 1.5 weeks again. SW in to speak with pt. SW introduced self and role at [facility]. SW began to ask questions regarding her ETOH use. Pt confirms that she quit drinking about 1.5 weeks ago, states he was drinking couple beers a day. Pt states it was a mix between the regular size ones and the bigger ones. Pt states don't you guys compare notes. SW informed pt that the physician just wanted this worker to come in and talk about ETOH use and provide resources. SW informed pt that this worker can provide her with AA meetings, counseling resources, treatment centers etc. Pt states I'll take the resources. SW offered to make an appointment for pt and pt denied. Pt denied additional needs or concerns at this time. Emeli Vázquez PINION STAKER, DATA STEWARD
[2021-05-21] MEDS: Potassium Chloride Oral Tablet 20 MEQ 40 MEQ PO (12:10)
[2021-05-21 12:11] VITALS: BP 109/68; PULSE 88; RESP 18; TEMP 37.2; O2SAT 100
--- NOTE | 2021-05-21 13:34 | CASEMGMT ---
RN CM Assessment Introduced role of RN CM to patient. Patient is alert, oriented and able to participate in RN CM Assessment. Care providers, pharmacy, and demographics verified. Admit Dx: Acute colitis, Resolving Pancreatitis, ETOH abuse Re-Admit: No Barriers/Issues: Patient has been drinking alcohol on and off for years. 2 beers/daily. has been drinking more consistently since June 2020 as she planned to retire and garden but d/t psoriasis in her back has not been able to. also drinks more with nicer weather out on her porch. Denies smoking or illicit drug use. PCP: No PCP- offered list but declined. Specialists: None Preferred Pharmacy: [facility] Insurance: [facility] Rx Benefit: Yes LNOK: Brother Elvin Vale LW/HPOA: None Living Arrangements: Lives alone in [facility], 2 steps to enter. ADL?s: Independent with ambulation and 4ww as needed. Independent with ADLs. Transportation: Patient drives and drove self to hospital. Plans to drive self at DC. DME: [facility] HHC: None SNF: None Goal: Home and does not think will have any needs. Denies any issues, questions or concerns with going home or DC planning at this time. DC PLAN: Home and no anticipated needs identified at this time. JYOTSNA Ryder
--- NOTE | 2021-05-21 14:05 | NURSING ---
reviewed documentation by Ian Jha, student RN
== END 2021-05-21 13:03 | disposition home or self-care (01) | DRG 683 ==
LOC: ED 15:20 → MS3 15:56
PROVIDERS: Admitting Provider Family Medicine; Emergency Provider Emergency Medicine; Visit Provider Internal Medicine
DX: N17.9 Acute kidney failure, unspecified (principal); E87.1 Hypo-osmolality and hyponatremia; E87.6 Hypokalemia; K52.9 Noninfective gastroenteritis and colitis, unspecified; E86.0 Dehydration; G89.29 Other chronic pain; D53.9 Nutritional anemia, unspecified; I10 Essential (primary) hypertension; E03.9 Hypothyroidism, unspecified; E78.5 Hyperlipidemia, unspecified; M19.90 Unspecified osteoarthritis, unspecified site; K21.9 Gastro-esophageal reflux disease without esophagitis; F32.A Depression, unspecified; F41.9 Anxiety disorder, unspecified; Z79.890 Hormone replacement therapy; Z79.899 Other long term (current) drug therapy; Z87.19 Personal history of other diseases of the digestive system; Z87.891 Personal history of nicotine dependence
CPT/HCPCS: 36415; 74177; 80053; 82077; 83690; 83735; 84100; 84145; 85025; 87493; 87506; 93005; 99251; 99284; J7030; J7120; Q9967; G0463

== ENCOUNTER → 2021-06-02 14:12 | Outpatient (CLI) | payer OTHER, SELFPAY ==
[2021-06-02 14:36] LABS: Absolute Lymphocyte Count 2.03 X10^3/uL (0.83-4.51); Absolute Neutrophil Count 8.3 X10^3/uL (2.0-7.7); Basophil# 0.09 X10^3/uL; Basophil% 0.8 % (0-1); Eosinophil# 0.38 X10^3/uL; Eosinophils% 3.3 % (0-5); Hematocrit 31.2 % (37-47); Hemoglobin 10.4 g/dL (12.0-15.0); Lymphocyte # 2.03 X10^3/ul (0.83-4.51); Lymphocyte % 17.7 % (19-41); Mean Corp Hgb Conc 33.3 g/dL (32-36); Mean Corpuscular Hgb 33.1 pg (27.0-32.0); Mean Corpuscular Volume 99.4 fL (81-99); Mean Platelet Vol. 9.4 fl (6.2-12.0); Monocyte# 0.64 X10^3/uL; Monocyte% 5.6 % (0-10); NRBC Flagged by Analyzer 0 % (0-5); Neutrophil % 72.1 % (47-70); Platelet Count 453 K/mm3 (150-450); RBC Distribution Width CV 11.9 % (11.6-14.6); RBC Distribution Width SD 43.7 fl (35.1-43.9); Red Blood Count 3.14 M/mm3 (4.2-5.4); White Blood Count 11.5 K/mm3 (4.4-11.0)
[2021-06-02 14:53] LABS: ALB/GLOB Ratio 0.6 RATIO (0.9-2.4); AST(SGOT) 16 U/L (15-37); Alanine Aminotransfer ALT/SGPT 14 U/L (13-56); Albumin, Serum 3.3 g/dL (3.2-5.0); Alkaline Phosphatase 65 U/L (45-117); Anion Gap 14 (5-15); BUN 6 mg/dL (7-18); BUN/Creat Ratio 3.6 RATIO (10-20); Chloride 102 mmol/L (98-107); Creatinine, Serum 1.67 mg/dL (0.55-1.02); EST Glomerular Filtration Rate 33 mL/min (>60); Est Glom Filt Rate - Afr Amer 40 mL/min (>60); Globulin 5.8 g/dL (2.2-4.2); Glucose 137 mg/dL (74-106); Lipase 403 U/L (73-393); Protein, Total 9.1 g/dL (6.4-8.2); Sodium Level 132 mmol/L (136-145)
== END ==
PROVIDERS: Referring Provider Surgery; Visit Provider Surgery
DX: R10.10 Upper abdominal pain, unspecified (principal); E87.1 Hypo-osmolality and hyponatremia; E87.6 Hypokalemia; F10.11 Alcohol abuse, in remission
CPT/HCPCS: 80053; 83690; 85025

== ENCOUNTER → 2021-06-16 09:01 | Outpatient (CLI) | payer OTHER, SELFPAY ==
[2021-06-16 09:26] LABS: Absolute Lymphocyte Count 1.86 X10^3/uL (0.83-4.51); Absolute Neutrophil Count 6.5 X10^3/uL (2.0-7.7); Basophil# 0.05 X10^3/uL; Basophil% 0.5 % (0-1); Eosinophil# 0.57 X10^3/uL; Eosinophils% 5.8 % (0-5); Hematocrit 32.5 % (37-47); Hemoglobin 10.4 g/dL (12.0-15.0); Lymphocyte # 1.86 X10^3/ul (0.83-4.51); Mean Corpuscular Hgb 32.1 pg (27.0-32.0); Mean Corpuscular Volume 100.3 fL (81-99); Mean Platelet Vol. 9.6 fl (6.2-12.0); Monocyte# 0.76 X10^3/uL; Monocyte% 7.8 % (0-10); NRBC Flagged by Analyzer 0 % (0-5); Neutrophil # 6.49 X10^3/uL (2.7-7.7); Neutrophil % 66.5 % (47-70); Platelet Count 403 K/mm3 (150-450); RBC Distribution Width CV 12.1 % (11.6-14.6); RBC Distribution Width SD 45.4 fl (35.1-43.9); Red Blood Count 3.24 M/mm3 (4.2-5.4); White Blood Count 9.8 K/mm3 (4.4-11.0)
[2021-06-16 10:18] LABS: Anion Gap 11 (5-15); BUN 6 mg/dL (7-18); BUN/Creat Ratio 4.2 RATIO (10-20); Calcium,Total 9.4 mg/dL (8.5-10.1); Chloride 105 mmol/L (98-107); Creatinine, Serum 1.44 mg/dL (0.55-1.02); EST Glomerular Filtration Rate 39 mL/min (>60); Est Glom Filt Rate - Afr Amer 48 mL/min (>60); Glucose 91 mg/dL (74-106); Potassium 3.2 mmol/L (3.5-5.1); Sodium Level 135 mmol/L (136-145)
== END ==
PROVIDERS: Visit Provider Nurse Practitioner Adult Health
DX: E87.6 Hypokalemia (principal)
CPT/HCPCS: 36415; 80048; 85025

== ENCOUNTER 2021-06-17 09:54 | Day surgery (SDC) | payer OTHER, SELFPAY ==
[2021-05-16 11:09] LABS: ALB/GLOB Ratio 0.6 RATIO (0.9-2.4); AST(SGOT) 26 U/L (15-37); Alanine Aminotransfer ALT/SGPT 24 U/L (13-56); Albumin, Serum 3.4 g/dL (3.2-5.0); Alkaline Phosphatase 76 U/L (45-117); Anion Gap 15 (5-15); BUN 9 mg/dL (7-18); BUN/Creat Ratio 6.7 RATIO (10-20); Calcium,Total 10.4 mg/dL (8.5-10.1); Chloride 97 mmol/L (98-107); Creatinine, Serum 1.34 mg/dL (0.55-1.02); EST Glomerular Filtration Rate 43 mL/min (>60); Est Glom Filt Rate - Afr Amer 52 mL/min (>60); Globulin 5.7 g/dL (2.2-4.2); Glucose 100 mg/dL (74-106); Lipase 2316 U/L (73-393); Potassium 3.3 mmol/L (3.5-5.1); Protein, Total 9.1 g/dL (6.4-8.2); Sodium Level 129 mmol/L (136-145)
[2021-06-17] VITALS (8 sets, daily range): BP systolic 98–125; BP diastolic 57–89; PULSE 59–82; RESP 14–16; TEMP 36.1–37; O2SAT 100; BMI 17.8
--- NOTE | 2021-06-17 10:43 | HP.PCM_ITS ---
History and Physical Date of Admission: 06/17/21 Date of Service: 06/04/21 MR#:[id number]:[id number]: AZAR HEATH [facility] #:[id number]:1960 Provider:Tyson Lopez/Sex: 60/F [facility] Vital Signs 06/04/21 08:31 Height 5 ft 5 in Weight: 110 lb BMI 18.3 BP 112/74 Blood Pressure Location Rt brachial Position Sitting Respiration 16 Pulse 95 Pulse Source Monitor Temp 97.3 F L Temp Source Temporal Pulse Oximetry (%) 94 Intake Visit Reasons: [address] [place] [address] f/u 05/21 Chief Complaint: recheck abdominal pain Contract Programmer Required: No Is patient in pain?: No Allergies Penicillins Allergy (Mild, Verified 05/20/21 10:40) Rash Medications levothyroxine 50 mcg tablet 50 mcg PO DAILY tab 05/09/21 [History Confirmed 06/04/21] sertraline 25 mg tablet 25 mg PO DAILY tab 05/09/21 [History Confirmed 06/04/21] ferrous sulfate 325 mg PO QODAY #30 tab 05/21/21 [Rx Confirmed 06/04/21] folic acid 1 mg PO BREAKFAST #30 tab 05/21/21 [Rx Confirmed 06/04/21] omeprazole 40 mg PO DAILY #0 cap 05/21/21 [Rx Confirmed 06/04/21] thiamine HCl (vitamin B1) [Vitamin B-1] 100 mg PO DAILY #30 tab 05/21/21 [Rx Confirmed 06/04/21] potassium chloride 20 mEq tablet,extended release 20 meq PO BID #14 tab 06/03/21 [Rx Confirmed 06/03/21] Patient : No PFSH Medical History (Updated 06/04/21 @ 10:[address] Cirilo Hendrix MD) Alcohol use Anemia Anxiety and depression Back pain Former smoker Gallstones Gastric reflux History of alcohol abuse History of TMJ disorder Hypertension Hypothyroidism Osteoarthritis Restless legs Shortness of breath on exertion Walker as ambulation aid Surgical History (Updated 05/20/21 @ 21:[address] Marnie Gorman MD) History of mandibular surgery Family History Father Cancer Mother Cancer Social History (Updated 05/20/21 @ 21:[address] Marnie Gorman MD) household members: none Smoking Status: Former smoker how long ago did patient quit smoking: Quit 30 years prior, 1 ppd since teenager until quitting. alcohol intake: former details: Quit 1 week prior to current admission 05/20/21, notes 1-2 tall boys daily. substance use type: does not use HPI HPI HPI: AZAR HEATH, is a 60 F who presents to the office today for hospital follow-up after an admission 08/20/2010 10/05/2020 which was occasioned by a presyncopal episode during remained for a routine clinic visit. Patient had appeared severely dehydrated and was admitted for IV fluid resuscitation. She responded well to this therapy and had near correction of her acute kidney injury as well as other laboratories. She reports feeling somewhat better today since her hospitalization. In the interim she had laboratories which showed persistent elevation of her creatinine but some improvement in her anemia with her most recent hemoglobin of 10.1 mg/dL. She is notified of these lab results via phone and urged to work to improve her hydration given the elevation in her creatinine. She states yesterday she calculated her daily intake to be 164 fluid ounces and insists that her urine output has been clear. She questions how much more fluid she should take. She reports that her oral intake still is not optimal as things do not appeal to me. This has resulted in less frequent bowel movements, but when she does experience bowel movements they are unremarkable and specifically, nonbloody. She confirms that, overall, eating is uneventful without any subsequent nausea or vomiting?however, this morning she did have a bout of small-volume emesis after she ingested 4 ounces of water prior to her visit. She attributes this to some anxiety and states that she experienced this kind of vomiting in the past. Her oral intake at this point primarily consists of fruits and vegetables, and questioned about varying up her diet she states that she has been quite confused over conflicting recommendations from her various physicians about what she is to limit. She was previously taking boost supplements until she was advised to limit her protein intake. Exam Const General: cooperative, healthy appearing, comfortable, not in acute distress and frail appearing Nutritional Appearance: malnourished and thin Orientation: alert, awake and oriented x3 Resp Auscultation: clear to auscultation bilaterally GI Inspection: normal to inspection and non-distended Palpation: soft and tender in the RUQ (Focally tender in the right upper quadrant just beneath the midclavicular costal margin) Assessment and Plan Assessment and Plan (1) Hypokalemia: Status: Acute Comment: Patient's most recent labs demonstrated mild hypokalemia with a K of 3.0. Potassium chloride was ordered the patient's pharmacy and she was notified of this addition. She reports that her PCP also ordered supplementation. I have minded her the importance to fill the prescription, particularly in light of her recent emesis. Medications: New: potassium chloride ER 20 mEq PO BID 14 tabs 0RF Plan - Dr. Cirilo Hendrix MD: ?Potassium chloride previously prescribed (2) Abdominal pain with vomiting: Status: Acute Comment: 60-year-old female with recent weight loss and abdominal pain with vomiting. Patient's abdominal pain and vomiting appears to be improved with conservative treatment of her pancreatitis and limiting alcohol intake. Still, CT imaging showed some right-sided colitis and patient is relatively anemic (although this is improving). Therefore, I would still like to proceed with upper and lower endoscopy Plan - Dr. Cirilo Hendrix MD: ?Patient encouraged to continue abstaining from high fat foods and alcohol ?Upper and lower endoscopy with local MAC at first mutually available date (3) Anemia: Status: Acute Qualifiers: Anemia type: unspecified type Qualified Code(s): D64.9 - Anemia, unspecified Comment: This is a 60-year-old female with no history of screening colonoscopy. While her anemia seems relatively improved, diagnostic colonoscopy still indicated. Plan - Dr. Cirilo Hendrix MD: Diagnostic colonoscopy under local MAC first mutually available date. (4) Weight loss: Status: Acute Comment: Is a 60-year-old female who reports chronic abdominal pain and p.o. intolerance due to vomiting. She has never undergone EGD or colonoscopy. While patient's abdominal pain and nausea vomiting have improved, she still has minimal p.o. intake and states part of this was due to conflicting physician recommendations on her diet. I have advised her to continue a low-fat diet but to increase her protein intake during this investigation. I would like to proceed with diagnostic colonoscopy as above to exclude an occult malignancy for this weight loss. Plan - Dr. Cirilo Hendrix MD: ?Patient advised to resume some protein supplementation with boost shakes ?Proceed with diagnostic colonoscopy under local MAC (5) Pancreatitis: Status: Acute Qualifiers: Pancreatitis type: alcohol induced Acute pancreatitis complication: no infection or necrosis Comment: Patient with resolving pancreatitis given improvements in her abdominal discomfort epigastric abdominal discomfort and lipase. Patient advised to remain abstinent from alcohol use and limits fatty foods with diet. Plan - Dr. Cirilo Hendrix MD: - Continue low-fat diet ?Continue alcohol avoidance, patient enrolled and support group through most recent hospital stay (6) Acute kidney injury: Status: Acute Comment: Patient's most recent creatinine is 1.67 from hospital stay creatinine of 1.26 (following IV fluid resuscitation). Patient insists that her fluid intake has been substantial and urine outputs have been clear. I stressed to her the importance of taking enough fluid to urinate frequently and so the character is clear. She denies any recent NSAID use and states her go to medication for di scomfort is acetaminophen. Plan - Dr. Cirilo Hendrix MD: ?Continue more aggressive hydration and patient advised to consciously increase her intake as she goes through prep for planned upper and lower endoscopy Coding Level of Care Code Off vis,est,level 4 Diagnoses Hypokalemia E87.6 Abdominal pain with vomiting R10.9; R11.10 Anemia D64.9 Anemia type: unspecified type Weight loss R63.4 Pancreatitis K85.90 Pancreatitis type: alcohol induced Acute pancreatitis complication: no infection or necrosis Acute kidney injury N17.9 Pt seen and examined at bedside. She confirms no significant issues with her prep and that her output has now become clear. She also denies any significant ab discomfort. She states she did take 4 tabs of potassium chloride as directed after her labs came back yesterday. Plan to proceed with EGD and colonoscopy as scheduled pending successful IV access and confirmation of improved serum potassium.
[2021-06-17] MEDS: Lactated Ringers 1,000 ML 15 ML IV (10:53)
[2021-06-17 10:59] LABS: Potassium 3.7 mmol/L (3.5-5.1)
--- NOTE | 2021-06-17 11:00 | EGD_PTH ---
PATIENT: AZAR HEATH LOC: EN U#:[id number] AGE/SX: 60/F ROOM: RE06/17/[address]: Dr. Cirilo Hendrix MD : 1960 BED: DIS: 06/17/2021 SPEC #: [id number] RECD: 06/17/21 15:18 STATUS: GAETANO JAMES #: [id number] KENY: 06/17/21 11:[address]: Cirilo Hendrix DEPT: SURGICAL PATHOLOGY RECD BY: Tamiko Thomas ENTERED: 06/18/21 09:33 SP TYPE: EGD BIOPSY SORAIDA DR: Gina Norton, CLAY ARTIST-C [facility] Tissues: A - Gastric mucous membrane B - Ascending colon C - Ascending colon Procedures: Trichrome (control) Special Stain Group II Surgery Specimen Level IV HEADER OPERATION: Colonoscopy, EGD ([facility]) PRE-OP DIAGNOSIS: Acute weight loss, acute abdominal pain, anemia, acute hypokalemia, acute pancreatitis TISSUE SUBMITTED: A ? Random antrum biopsy for H. pylori and path, B ? Ascending colon biopsy, C - Ascending colon polyp MICROSCOPIC DIAGNOSIS A. Antrum, biopsy: Mild gastritis. See microscopic description and comment. B. Ascending colon, biopsy: Consistent with collagenous colitis. See comment. C. Ascending colon polyp, biopsy: Tubular adenoma. Focal changes consistent with lymphocytic colitis. See comment. SJ:stacey 06/19/2021 COMMENT A. The results of immunohistochemistry for Helicobacter pylori will be reported separately ([id number]). B. Trichrome stain with matched control is used in the evaluation of the specimen and shows focal thickening of subepithelial collagen band. C. Trichrome stain with matched control is used in the evaluation of the specimen. MICROSCOPIC DESCRIPTION Slides are reviewed. A. The specimen shows fragments of gastric mucosa with chronic inflammatory cell infiltrates in the lamina propria consisting of lymphocytes and plasma cells, consistent with mild chronic gastritis. GROSS DESCRIPTION A - Received in fixative is one container labeled with the patient's name and designated random antrum biopsy. The specimen consists of two irregular fragments of light banks soft tissue that in aggregate measure 0.3 x 0.3 x 0.1 cm. The specimen is totally submitted in one cassette. B - Received in fixative is one container labeled with the patient's name and designated ascending colon biopsy. The specimen consists of one irregular fragment of light banks soft tissue that measures 0.5 x 0.3 x 0.1 cm. The specimen is totally submitted in one cassette. C - Received in fixative is one container labeled with the patient's name and designated ascending colon polyp. The specimen consists of one irregular fragment of light banks soft tissue that measures 0.5 x 0.5 x 0.1 cm. The specimen is totally submitted in one cassette. / SJ:rg 06/18/21 TC:1 CPT: 04934 x3, 78566 x2
--- NOTE | 2021-06-17 11:00 | IMM_PTH ---
PATIENT: AZAR HEATH LOC: EN U#:[id number] AGE/SX: 60/F ROOM: RE06/17/[address]: Dr. Cirilo Hendrix MD : 1960 BED: DIS: 06/17/2021 SPEC #: [id number] RECD: 06/18/21 13:37 STATUS: GAETANO REQ #: [id number] KENY: 06/17/21 11:[address]: Cirilo Hendrix DEPT: IMMUNOHISTOCHEMISTRY RECD BY: Alicia Gonzalez ENTERED: 06/18/21 13:37 SP TYPE: IMMUNO OTHR DR: Gina Norton, TILE APPLICATOR-C [facility] Tissues: A - Stomach, NOS Procedures: H Pylori (initial) PHYSICIAN & INSTITUTION [place] [address] SPECIMEN INFORMATION: Tissue Source: A ? Random antrum biopsy Clinical Info: Acute weight loss, acute abdominal pain, anemia, acute hypokalemia, acute pancreatitis Specimen Number: [id number] CPT code: 03384 METHODOLOGY: Deparaffinized sections of prefer/formalin-fixed tissue or PAP/DQ stained slides are incubated with monoclonal/polyclonal antibodies/oligonucleotide probes. Localization is made via biotin free immunoperoxidase method. Appropriate controls are performed and reacted as expected. Results on target cell population are indicated in the following table: RESULTS: ANTIBODY / CLONE RESULT Block A H Pylori (polyclonal) negative These tests were developed and their performance characteristics determined by [facility]. They may not have been cleared or approved by the U.S. Food and Drug Administration. The FDA has determined that such clearance or approval is not necessary. INTERPRETATION: A. Antrum, random biopsy: Negative for Helicobacter pylori organisms. SJ:stacey 06/19/2021
--- NOTE | 2021-06-17 12:57 | OP.EGD_ITS ---
Patient Name: Yahaira Montilla Procedure Date: 06/17/2021 7:41 AM Date of : 1960 Age: 60 Procedure: Upper GI endoscopy Indications: Epigastric abdominal pain, Nausea with vomiting Providers: Cirilo Hendrix MD Referring MD: Cirilo Hendrix MD Medicines: Monitored Anesthesia Care Patient Profile: Refer to note in patient chart for documentation of history and physical. Complications: No immediate complications. Estimated blood loss: Minimal. Procedure: Pre-Anesthesia Assessment: - The anesthesia plan was to use moderate sedation/analgesia (conscious sedation). - The heart rate, respiratory rate, oxygen saturations, blood pressure, adequacy of pulmonary ventilation, and response to care were monitored throughout the procedure. After obtaining informed consent, the endoscope was passed under direct vision. Throughout the procedure, the patient's blood pressure, pulse, and oxygen saturations were monitored continuously. The Endoscope was introduced through the mouth, and advanced to the second part of duodenum. The upper GI endoscopy was accomplished without difficulty. The patient tolerated the procedure well. Scope In: 11:28:12 AM Scope Out: 11:40:49 AM Total Procedure Duration Time 0 hours 12 minutes 37 seconds Findings: No gross lesions were noted in the entire examined duodenum. No biopsies or other specimens were collected for this exam. Localized mild inflammation characterized by erythema was found in the gastric antrum. Biopsies were taken with a cold forceps for histology. Estimated blood loss was minimal. Biopsies were taken with a cold forceps for Helicobacter pylori cultures. Estimated blood loss was minimal. A medium-sized hiatal hernia was present. No biopsies or other specimens were collected for this exam. The Z-line was regular and was found 35 cm from the incisors. No biopsies or other specimens were collected for this exam. Impression: - No gross lesions in the entire examined duodenum. No specimens collected. - Gastritis. Biopsied. - Medium-sized hiatal hernia. No specimens collected. - Z-line regular, 35 cm from the incisors. No specimens collected. Recommendation: - Discharge patient to home (via wheelchair). - Resume regular diet today. - Await pathology results. - Telephone my office for pathology results at appointment to be scheduled. - Continue present medications. Procedure Code(s): --- Professional --- 70227, Esophagogastroduodenoscopy, flexible, transoral; with biopsy, single or multiple Diagnosis Code(s): --- Professional --- K29.70, Gastritis, unspecified, without bleeding K44.9, Diaphragmatic hernia without obstruction or gangrene R10.13, Epigastric pain R11.2, Nausea with vomiting, unspecified CPT copyright 2017 [employer]. All rights reserved. The codes documented in this report are preliminary and upon radial drill operator for plastic review may be revised to meet current compliance requirements. Cirilo Hendrix MD 06/17/2021 12:57:06 PM This report has been signed electronically. Number of Addenda: 0 Note Initiated On: 06/17/2021 7:41 AM
--- NOTE | 2021-06-17 12:58 | OP.CCLET_ITS ---
06/17/2021 Keily Le [facility] Re : Upper GI endoscopy procedure for Yahaira Carrillo [facility] This procedure was performed on Thursday, June 17, 2021. My impressions and recommendations are as follows: Impressions : - No gross lesions in the entire examined duodenum. No specimens collected. - Gastritis. Biopsied. - Medium-sized hiatal hernia. No specimens collected. - Z-line regular, 35 cm from the incisors. No specimens collected. Recommendations : - Discharge patient to home (via wheelchair). - Resume regular diet today. - Await pathology results. - Telephone my office for pathology results at appointment to be scheduled. - Continue present medications. My findings are described in the full procedure note, which is enclosed. If I can be of further assistance, please feel free to contact me at Doctor phone number(s): , Work: . Sincerely, Cirilo Hendrix MD 06/17/2021 12:57:06 PM This report has been signed electronically.
--- NOTE | 2021-06-17 13:04 | OP.COLON_ITS ---
Patient Name: Yahaira Montilla Procedure Date: 06/17/2021 11:44 AM Date of : 1960 Age: 60 Procedure: Colonoscopy Indications: Epigastric abdominal pain, Iron deficiency anemia Providers: Cirilo Hendrix MD Referring MD: Cirilo Hendrix MD Medicines: See the Anesthesia note for documentation of the administered medications Patient Profile: Refer to note in patient chart for documentation of history and physical. Refer to note in patient chart for documentation of history and physical. Last Colonoscopy: none. The patient's first colonoscopy is today. Complications: No immediate complications. Estimated blood loss: Minimal. Procedure: Pre-Anesthesia Assessment: - The anesthesia plan was to use moderate sedation/analgesia (conscious sedation). - The heart rate, respiratory rate, oxygen saturations, blood pressure, adequacy of pulmonary ventilation, and response to care were monitored throughout the procedure. After I obtained informed consent, the scope was passed under direct vision. Throughout the procedure, the patient's blood pressure, pulse, and oxygen saturations were monitored continuously. The Colonoscope was introduced through the anus and advanced to the cecum, identified by the appendiceal orifice. The colonoscopy was technically difficult and complex due to a tortuous colon. Successful completion of the procedure was aided by applying abdominal pressure. The patient tolerated the procedure well. The quality of the bowel preparation was adequate to identify polyps. Scope In: 11:45:13 AM Scope Withdrawal Time 0 hours 39 minutes 12 seconds Scope Out: 12:46:47 PM Total Procedure Duration Time 1 hour 1 minute 34 seconds Findings: A 6 mm polyp was found in the distal ascending colon. The polyp was semi-sessile. The polyp was removed with a hot snare. Resection and retrieval were complete. Estimated blood loss was minimal. Multiple petechiae were found in the cecum. Estimated blood loss was minimal. Biopsies were taken with a cold forceps for histology. The exam was otherwise without abnormality on direct and retroflexion views. Impression: - One 6 mm polyp in the distal ascending colon, removed with a hot snare. Resected and retrieved. - Petechia(e) in the cecum. Biopsied. - The examination was otherwise normal on direct and retroflexion views. Recommendation: - Discharge patient to home (via wheelchair). - Resume regular diet today. - Continue present medications. - Await pathology results. - Repeat colonoscopy for surveillance based on pathology results. - Telephone my office for pathology results at appointment to be scheduled. Procedure Code(s): --- Professional --- 94862, Colonoscopy, flexible; with removal of tumor(s), polyp(s), or other lesion(s) by snare technique 52113, 59, Colonoscopy, flexible; with biopsy, single or multiple Diagnosis Code(s): --- Professional --- D12.2, Benign neoplasm of ascending colon K63.89, Other specified diseases of intestine R10.13, Epigastric pain D50.9, Iron deficiency anemia, unspecified CPT copyright 2017 [employer]. All rights reserved. The codes documented in this report are preliminary and upon loading unit operator powder charging review may be revised to meet current compliance requirements. Cirilo Hendrix MD 06/17/2021 1:04:19 PM This report has been signed electronically. Number of Addenda: 0 Note Initiated On: 06/17/2021 11:44 AM
--- NOTE | 2021-06-17 13:05 | OP.CCLET_ITS ---
[facility] This procedure was performed on Thursday, June 17, 2021. My impressions and recommendations are as follows: Impressions : - One 6 mm polyp in the distal ascending colon, removed with a hot snare. Resected and retrieved. - Petechia(e) in the cecum. Biopsied. - The examination was otherwise normal on direct and retroflexion views. Recommendations : - Discharge patient to home (via wheelchair). - Resume regular diet today. - Continue present medications. - Await pathology results. - Repeat colonoscopy for surveillance based on pathology results. - Telephone my office for pathology results at appointment to be scheduled. My findings are described in the full procedure note, which is enclosed. If I can be of further assistance, please feel free to contact me at Doctor phone number(s): , Work: . Sincerely, Cirilo Hendrix MD 06/17/2021 1:04:19 PM This report has been signed electronically.
== END 2021-06-17 14:43 ==
LOC: EN 09:58 → AC 09:59
PROVIDERS: Anesthesiology; Referring Provider Surgery; Visit Provider Surgery
PROC: 0DJD8ZZ Inspection of Lower Intestinal Tract, Via Natural or Artificial Opening Endoscopic (ICD-10-PCS; CPT 45378; principal; 2021-06-17 10:55)
DX: K29.70 Gastritis, unspecified, without bleeding (principal); D12.2 Benign neoplasm of ascending colon; D50.9 Iron deficiency anemia, unspecified; K63.89 Other specified diseases of intestine; K44.9 Diaphragmatic hernia without obstruction or gangrene; I10 Essential (primary) hypertension; F41.9 Anxiety disorder, unspecified; M19.90 Unspecified osteoarthritis, unspecified site; G25.81 Restless legs syndrome; E03.9 Hypothyroidism, unspecified; K21.9 Gastro-esophageal reflux disease without esophagitis; Z87.19 Personal history of other diseases of the digestive system; Z79.899 Other long term (current) drug therapy; Z87.891 Personal history of nicotine dependence
CPT/HCPCS: 43239; 45380; 45385; 36415; 80053; 83690; 84132; 88305; 88313; 88342; J7120; J2405

== ENCOUNTER 2021-07-22 11:42 | Outpatient (CLI) | payer MEDICAID, SELFPAY ==
[2021-07-22 12:04] LABS: Absolute Lymphocyte Count 2.17 X10^3/uL (0.83-4.51); Absolute Neutrophil Count 9.1 X10^3/uL (2.0-7.7); Basophil# 0.06 X10^3/uL; Basophil% 0.5 % (0-1); Eosinophil# 0.04 X10^3/uL; Eosinophils% 0.3 % (0-5); Hematocrit 32.9 % (37-47); Hemoglobin 10.4 g/dL (12.0-15.0); Lymphocyte # 2.17 X10^3/ul (0.83-4.51); Lymphocyte % 17.8 % (19-41); Mean Corp Hgb Conc 31.6 g/dL (32-36); Mean Corpuscular Hgb 31.3 pg (27.0-32.0); Mean Corpuscular Volume 99.1 fL (81-99); Mean Platelet Vol. 10.3 fl (6.2-12.0); Monocyte# 0.71 X10^3/uL; Monocyte% 5.8 % (0-10); NRBC Flagged by Analyzer 0 % (0-5); Neutrophil # 9.14 X10^3/uL (2.7-7.7); Neutrophil % 74.9 % (47-70); Platelet Count 428 K/mm3 (150-450); RBC Distribution Width CV 12.9 % (11.6-14.6); RBC Distribution Width SD 46.7 fl (35.1-43.9); Red Blood Count 3.32 M/mm3 (4.2-5.4); White Blood Count 12.2 K/mm3 (4.4-11.0)
[2021-07-22 12:27] LABS: Anion Gap 7 (5-15); BUN 15 mg/dL (7-18); BUN/Creat Ratio 14.3 RATIO (10-20); Calcium,Total 9.3 mg/dL (8.5-10.1); Chloride 107 mmol/L (98-107); Creatinine, Serum 1.05 mg/dL (0.55-1.02); EST Glomerular Filtration Rate 57 mL/min (>60); Est Glom Filt Rate - Afr Amer 69 mL/min (>60); Glucose 112 mg/dL (74-106); Potassium 4.4 mmol/L (3.5-5.1); Sodium Level 142 mmol/L (136-145)
== END 2021-07-22 23:59 | disposition short-term general hospital (02) ==
LOC: LAB 11:45
DX: D64.9 Anemia, unspecified (principal); N28.9 Disorder of kidney and ureter, unspecified; E87.6 Hypokalemia
CPT/HCPCS: 36415; 80048; 85025

== ENCOUNTER 2021-08-20 10:05 | Outpatient (CLI) | payer MEDICAID, SELFPAY ==
[2021-08-20 10:56] LABS: Absolute Lymphocyte Count 2.61 X10^3/uL (0.83-4.51); Absolute Neutrophil Count 6.5 X10^3/uL (2.0-7.7); Basophil# 0.04 X10^3/uL; Basophil% 0.4 % (0-1); Eosinophil# 0.23 X10^3/uL; Eosinophils% 2.2 % (0-5); Hematocrit 33.2 % (37-47); Hemoglobin 10.6 g/dL (12.0-15.0); Lymphocyte # 2.61 X10^3/ul (0.83-4.51); Lymphocyte % 25.2 % (19-41); Mean Corp Hgb Conc 31.9 g/dL (32-36); Mean Corpuscular Hgb 31.4 pg (27.0-32.0); Mean Corpuscular Volume 98.2 fL (81-99); Mean Platelet Vol. 9.8 fl (6.2-12.0); Monocyte# 0.88 X10^3/uL; Monocyte% 8.5 % (0-10); NRBC Flagged by Analyzer 0 % (0-5); Neutrophil # 6.52 X10^3/uL (2.7-7.7); Platelet Count 405 K/mm3 (150-450); RBC Distribution Width CV 13.2 % (11.6-14.6); RBC Distribution Width SD 47.3 fl (35.1-43.9); Red Blood Count 3.38 M/mm3 (4.2-5.4); White Blood Count 10.4 K/mm3 (4.4-11.0)
[2021-08-20 11:21] LABS: Anion Gap 6 (5-15); BUN 19 mg/dL (7-18); BUN/Creat Ratio 16.8 RATIO (10-20); Calcium,Total 9.2 mg/dL (8.5-10.1); Chloride 107 mmol/L (98-107); Creatinine, Serum 1.13 mg/dL (0.55-1.02); EST Glomerular Filtration Rate 52 mL/min (>60); Est Glom Filt Rate - Afr Amer 63 mL/min (>60); Glucose 77 mg/dL (74-106); Sodium Level 139 mmol/L (136-145)
== END 2021-08-20 23:59 | disposition short-term general hospital (02) ==
DX: D64.9 Anemia, unspecified (principal)
CPT/HCPCS: 36415; 80048; 85025

== ENCOUNTER 2021-10-10 09:39 | Outpatient (CLI) | payer MEDICAID, SELFPAY ==
[2021-10-10 10:08] LABS: Absolute Lymphocyte Count 1.92 X10^3/uL (0.83-4.51); Absolute Neutrophil Count 6.9 X10^3/uL (2.0-7.7); Basophil# 0.05 X10^3/uL; Basophil% 0.5 % (0-1); Eosinophil# 0.43 X10^3/uL; Eosinophils% 4.2 % (0-5); Hematocrit 34.9 % (37-47); Hemoglobin 12.2 g/dL (12.0-15.0); Lymphocyte # 1.92 X10^3/ul (0.83-4.51); Lymphocyte % 18.9 % (19-41); Mean Corpuscular Hgb 31.5 pg (27.0-32.0); Mean Corpuscular Volume 90.2 fL (81-99); Mean Platelet Vol. 8.7 fl (6.2-12.0); Monocyte# 0.76 X10^3/uL; Monocyte% 7.5 % (0-10); NRBC Flagged by Analyzer 0 % (0-5); Neutrophil # 6.94 X10^3/uL (2.7-7.7); Neutrophil % 68.4 % (47-70); Platelet Count 421 K/mm3 (150-450); RBC Distribution Width CV 11.8 % (11.6-14.6); RBC Distribution Width SD 38.8 fl (35.1-43.9); Red Blood Count 3.87 M/mm3 (4.2-5.4); White Blood Count 10.2 K/mm3 (4.4-11.0)
[2021-10-10 10:46] LABS: Anion Gap 7 (5-15); BUN 17 mg/dL (7-18); BUN/Creat Ratio 14.8 RATIO (10-20); Calcium,Total 9.7 mg/dL (8.5-10.1); Chloride 97 mmol/L (98-107); Creatinine, Serum 1.15 mg/dL (0.55-1.02); EST Glomerular Filtration Rate 51 mL/min (>60); Est Glom Filt Rate - Afr Amer 62 mL/min (>60); Glucose 104 mg/dL (74-106); Potassium 3.8 mmol/L (3.5-5.1); Sodium Level 128 mmol/L (136-145); Thyroid Stim Hormone (TSH) 1.99 uIU/mL (0.358-3.74)
== END 2021-10-10 23:59 | disposition home or self-care (01) ==
LOC: LAB 09:42
PROVIDERS: Referring Provider Nurse Practitioner Adult Health; Visit Provider Nurse Practitioner Adult Health
DX: E03.9 Hypothyroidism, unspecified (principal); D64.9 Anemia, unspecified
CPT/HCPCS: 36415; 80048; 84443; 85025

== ENCOUNTER 2021-10-24 11:05 | Outpatient (CLI) | payer MEDICAID, SELFPAY ==
[2021-10-24 12:10] LABS: Anion Gap 6 (5-15); BUN 19 mg/dL (7-18); BUN/Creat Ratio 14.6 RATIO (10-20); Calcium,Total 9.8 mg/dL (8.5-10.1); Chloride 104 mmol/L (98-107); EST Glomerular Filtration Rate 44 mL/min (>60); Est Glom Filt Rate - Afr Amer 54 mL/min (>60); Glucose 95 mg/dL (74-106); Potassium 4.5 mmol/L (3.5-5.1); Sodium Level 134 mmol/L (136-145)
== END 2021-10-24 23:59 | disposition home or self-care (01) ==
LOC: LAB 11:06
PROVIDERS: Visit Provider Nurse Practitioner Adult Health
DX: E87.1 Hypo-osmolality and hyponatremia (principal)
CPT/HCPCS: 36415; 80048

== ENCOUNTER → 2021-12-12 | Outpatient (CLI) | payer MEDICAID, SELFPAY ==
[2021-12-12 12:28] LABS: Absolute Lymphocyte Count 2.43 X10^3/uL (0.83-4.51); Absolute Neutrophil Count 5.1 X10^3/uL (2.0-7.7); Basophil# 0.06 X10^3/uL; Basophil% 0.7 % (0-1); Eosinophil# 0.67 X10^3/uL; Eosinophils% 7.3 % (0-5); Hematocrit 36.7 % (37-47); Hemoglobin 11.9 g/dL (12.0-15.0); Lymphocyte # 2.43 X10^3/ul (0.83-4.51); Lymphocyte % 26.6 % (19-41); Mean Corp Hgb Conc 32.4 g/dL (32-36); Mean Corpuscular Hgb 30.7 pg (27.0-32.0); Mean Corpuscular Volume 94.8 fL (81-99); Mean Platelet Vol. 8.9 fl (6.2-12.0); Monocyte# 0.78 X10^3/uL; Monocyte% 8.5 % (0-10); NRBC Flagged by Analyzer 0.2 % (0-5); Neutrophil # 5.13 X10^3/uL (2.7-7.7); Neutrophil % 56.2 % (47-70); Platelet Count 429 K/mm3 (150-450); RBC Distribution Width CV 11.8 % (11.6-14.6); RBC Distribution Width SD 40.3 fl (35.1-43.9); Red Blood Count 3.87 M/mm3 (4.2-5.4); White Blood Count 9.1 K/mm3 (4.4-11.0)
[2021-12-12 13:02] LABS: Anion Gap 6 (5-15); BUN 12 mg/dL (7-18); BUN/Creat Ratio 10.1 RATIO (10-20); Calcium,Total 9.4 mg/dL (8.5-10.1); Chloride 99 mmol/L (98-107); Creatinine, Serum 1.19 mg/dL (0.55-1.02); EST Glomerular Filtration Rate 49 mL/min (>60); Est Glom Filt Rate - Afr Amer 59 mL/min (>60); Glucose 90 mg/dL (74-106); Potassium 4.1 mmol/L (3.5-5.1); Sodium Level 133 mmol/L (136-145)
== END | disposition home or self-care (01) ==
LOC: LAB 11:30
PROVIDERS: Visit Provider Nurse Practitioner Adult Health
DX: N28.9 Disorder of kidney and ureter, unspecified (principal); D64.9 Anemia, unspecified
CPT/HCPCS: 36415; 80048; 85025

== ENCOUNTER → 2022-01-27 | Outpatient (CLI) | payer MEDICAID, SELFPAY ==
[2022-01-27 11:33] LABS: Anion Gap 9 (5-15); Chloride 98 mmol/L (98-107); Potassium 4.1 mmol/L (3.5-5.1); Sodium Level 130 mmol/L (136-145)
== END | disposition home or self-care (01) ==
LOC: LAB 10:00
PROVIDERS: Referring Provider Nurse Practitioner Adult Health; Visit Provider Nurse Practitioner Adult Health
DX: E87.1 Hypo-osmolality and hyponatremia (principal)
CPT/HCPCS: 36415; 80051

== ENCOUNTER → 2022-02-10 | Outpatient (CLI) | payer MEDICAID, SELFPAY ==
[2022-02-10 13:10] LABS: Anion Gap 8 (5-15); Chloride 104 mmol/L (98-107); Sodium Level 136 mmol/L (136-145)
== END | disposition home or self-care (01) ==
LOC: LAB 11:41
DX: E87.1 Hypo-osmolality and hyponatremia (principal)
CPT/HCPCS: 36415; 80051